=== PATIENT | female | born 2000 | race Caucasian/White ===

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

== ENCOUNTER → 2018-01-05 | Outpatient (REF) | payer OTHER, MEDICAID ==
[2018-01-05 21:35] LABS: CHLAMYDIA DNA AMPLIFICATION POSITIVE (NEGATIVE); GC DNA AMPLIFICATION NEGATIVE (NEGATIVE)
== END ==
LOC: M LAB REF 16:59
DX: Z34.81 Encounter for supervision of other normal pregnancy, first trimester (principal); Z3A.00 Weeks of gestation of pregnancy not specified

== ENCOUNTER → 2018-01-27 | Outpatient (CLI) | payer OTHER | LOC: M RAD 11:39 | DX: Z34.82 Encounter for supervision of other normal pregnancy, second trimester (principal) | CPT/HCPCS: 76811 ==

== ENCOUNTER → 2018-02-03 | Outpatient (REF) | payer MEDICAID, OTHER ==
[2018-02-03 21:25] LABS: CHLAMYDIA DNA AMPLIFICATION NEGATIVE (NEGATIVE); GC DNA AMPLIFICATION NEGATIVE (NEGATIVE)
== END ==
LOC: M LAB REF 16:47
DX: Z34.82 Encounter for supervision of other normal pregnancy, second trimester (principal)

== ENCOUNTER → 2018-02-12 | Outpatient (CLI) | payer MEDICAID, OTHER, SELFPAY | LOC: M RAD 12:20 | DX: Z34.82 Encounter for supervision of other normal pregnancy, second trimester (principal) | CPT/HCPCS: 76816 ==

== ENCOUNTER → 2018-03-09 | Outpatient (CLI) | payer MEDICAID | LOC: M RAD 15:29 | DX: Z34.82 Encounter for supervision of other normal pregnancy, second trimester (principal); Z3A.25 25 weeks gestation of pregnancy | CPT/HCPCS: 76816 ==

== ENCOUNTER → 2018-05-01 | Outpatient (CLI) | payer OTHER ==
[2018-05-01 14:03] LABS: BASO % 0.4 % (0.0-1.0); EOS # 0.1 10^3/uL (0.0-0.50); EOS % 1.3 % (0.0-3.0); HEMATOCRIT 35.4 % (36.0-47.0); HEMOGLOBIN 11.9 g/dl (12.0-15.5); IMMATURE GRANULOCYTE % 0.4 % (0-3.0); LYMPH # 1.3 10^3/uL (1.5-6.5); LYMPH % 12.5 % (24.0-44.0); MEAN CORPUSCULAR HEMOGLOBIN 27.9 pg (27.0-33.0); MEAN CORPUSCULAR HGB CONC 33.6 g/dl (32.0-36.5); MEAN CORPUSCULAR VOLUME 83.1 fl (80.0-96.0); MONO # 0.5 10^3/uL (0.0-0.8); MONO % 4.4 % (0.0-5.0); NEUTROPHILS # 8.7 10^3/uL (1.8-7.7); PLATELET COUNT, AUTOMATED 251 10^3/uL (150-450); RED BLOOD COUNT 4.26 10^6/uL (4.00-5.40); RED CELL DISTRIBUTION WIDTH 12.6 % (11.5-14.5); WHITE BLOOD COUNT 10.7 10^3/uL (4.0-10.0)
[2018-05-01 14:27] LABS: GLUCOSE CHALLENGE TEST 1 HOUR 106 MG/DL (LESS THAN 140)
== END ==
LOC: M LAB 11:37
DX: Z34.82 Encounter for supervision of other normal pregnancy, second trimester (principal); Z36.89 Encounter for other specified antenatal screening
CPT/HCPCS: 82950

== ENCOUNTER 2018-05-19 00:58 | Outpatient (CLI) | payer OTHER ==
[2018-05-19 01:52] LABS: HEMATOCRIT 33.6 % (36.0-47.0); HEMOGLOBIN 11.1 g/dl (12.0-15.5); MEAN CORPUSCULAR HEMOGLOBIN 27.7 pg (27.0-33.0); MEAN CORPUSCULAR VOLUME 83.8 fl (80.0-96.0); PLATELET COUNT, AUTOMATED 244 10^3/uL (150-450); RED BLOOD COUNT 4.01 10^6/uL (4.00-5.40); RED CELL DISTRIBUTION WIDTH 12.5 % (11.5-14.5); WHITE BLOOD COUNT 14.2 10^3/uL (4.0-10.0)
[2018-05-19 01:59] LABS: APPEARANCE, URINE HAZY (CLEAR); BACTERIA, URINE AUTO 3+ (NEGATIVE); BILIRUBIN, URINE AUTO NEGATIVE (NEGATIVE); BLOOD, URINE BLOOD NEGATIVE (NEGATIVE); COLOR, URINE YELLOW (YELLOW); GLUCOSE, URINE (UA) AUTO NEGATIVE (NEGATIVE); KETONE, URINE AUTO TRACE mg/dL (NEGATIVE); LEUKOCYTE ESTERASE, URINE AUTO 3+ (NEGATIVE); NITRITE, URINE AUTO NEGATIVE (NEGATIVE); PROTEIN, URINE AUTO NEGATIVE (NEGATIVE); RBC, URINE AUTO 2 /HPF (0-3); SQUAMOUS EPITHELIAL CELL UR AU 9 /HPF (0-6); UROBILINOGEN, URINE AUTO 0.2 mg/dL (0.0-2.0); WBC, URINE AUTO 19 /HPF (0-3)
[2018-05-19 02:23] LABS: ALBUMIN 2.4 GM/DL (3.2-5.2); ALBUMIN/GLOBULIN RATIO 0.71 (1.00-1.93); ALKALINE PHOSPHATASE 149 U/L (45-117); ALT/SGPT 13 U/L (12-78); AMYLASE 43 U/L (25-115); AST/SGOT 12 U/L (7-37); BILIRUBIN,DIRECT 0.1 MG/DL (0.0-0.2); BILIRUBIN,TOTAL 0.4 MG/DL (0.2-1.0); LIPASE 83 U/L (73-393); TOTAL PROTEIN 5.8 GM/DL (6.4-8.2)
[2018-05-19] MEDS ORDERED: NITROFURANTOIN (MACROBID) 100 MG CAP PO (03:15)
== END 2018-05-19 03:40 | disposition home or self-care (01) ==
LOC: M LDO 00:58
DX: O26.893 Other specified pregnancy related conditions, third trimester (principal); R10.13 Epigastric pain; O21.9 Vomiting of pregnancy, unspecified; Z3A.35 35 weeks gestation of pregnancy
CPT/HCPCS: 76705

== ENCOUNTER 2018-06-10 00:51 | Outpatient (CLI) | payer OTHER ==
[2018-06-10] MEDS: LACTATED RINGER'S 1000 ML IV (01:56)
== END 2018-06-10 03:15 | disposition home or self-care (01) ==
LOC: M LDO 00:51
DX: O26.893 Other specified pregnancy related conditions, third trimester (principal); R10.30 Lower abdominal pain, unspecified; Z3A.38 38 weeks gestation of pregnancy
CPT/HCPCS: 59025

== ENCOUNTER 2018-06-23 12:59 | Inpatient (IN) | payer OTHER ==
[2018-06-23 20:00] LABS: HEMATOCRIT 36.4 % (36.0-47.0); HEMOGLOBIN 12.2 g/dl (12.0-15.5); MEAN CORPUSCULAR HGB CONC 33.5 g/dl (32.0-36.5); MEAN CORPUSCULAR VOLUME 80.5 fl (80.0-96.0); PLATELET COUNT, AUTOMATED 297 10^3/uL (150-450); RED BLOOD COUNT 4.52 10^6/uL (4.00-5.40); WHITE BLOOD COUNT 17.5 10^3/uL (4.0-10.0)
[2018-06-23] MEDS: LR 1,000 ML IV (20:00)
[2018-06-23] MEDS: LACTATED RINGER'S 1000 ML IV (20:00)
[2018-06-23] MEDS ORDERED: FENTANYL 2MCG/ML ROPIVACAINE 0.2% IN 0.9% NACL 200ML IVBAG As Ordered (20:27)
[2018-06-23] MEDS: FENTANYL/ROPIVACAINE/NACL BAG 200 ML EPIDURAL (21:40)
[2018-06-23] MEDS ORDERED: ePHEDrine SULFATE 25 MG/5 ML(5MG/ML) SYRINGE As Ordered (21:56)
[2018-06-23] MEDS: OXYTOCIN DRIP 30 UNITS in APPROPRIATE DILUENT 1 EA IV (23:25)
[2018-06-24] MEDS ORDERED: ePHEDrine SULFATE 25 MG/5 ML(5MG/ML) SYRINGE IV (00:15)
[2018-06-24] MEDS ORDERED: EPIDURAL/PCA KEYS XX (00:15)
[2018-06-24] MEDS ORDERED: diphenhydrAMINE INJ 50MG/ML VIAL (J1200) IV (00:15)
[2018-06-24] MEDS ORDERED: LACTATED RINGER'S 1000 ML IV (00:15)
[2018-06-24] MEDS ORDERED: EPIDURAL COMMENT XX (00:15)
[2018-06-24] MEDS ORDERED: NALOXONE INJ 0.4 MG/1 ML VIAL (J2310) IV (00:15)
[2018-06-24] MEDS ORDERED: REFRIGERATOR IV KEYS XX (00:15)
[2018-06-24] MEDS: ONDANSETRON 4MG/2ML VIAL (J2405) IV (05:33)
[2018-06-24] MEDS: LR 1,000 ML IV ×2 (07:29→10:37)
[2018-06-24] MEDS: PRENATAL VITAMINS CHEWABLE TABLET PO (09:00)
[2018-06-24] MEDS: OXYTOCIN DRIP 30 UNITS in APPROPRIATE DILUENT 1 EA IV (10:37)
[2018-06-24 10:40] LABS: CORD GAS ABE A -6.8; CORD GAS HCO3 A 22.1 MEQ/L; CORD GAS PCO2 A 57.2 mmHg; CORD GAS PH A 7.205 UNITS; CORD GAS PO2 A 28.3 mmHg; CORD GAS SBC A 18.1 MEQ/L; CORD GAS TCO2 A 23.9 MEQ/L
[2018-06-24 10:44] LABS: CORD GAS ABE V -4.6; CORD GAS O2 SAT V 75.9 %; CORD GAS PCO2 V 45.8 mmHg; CORD GAS PH V 7.299 UNITS; CORD GAS PO2 V 33.8 mmHg; CORD GAS SBC V 20.2 MEQ/L; CORD GAS TCO2 V 23.4 MEQ/L
[2018-06-24] MEDS ORDERED: MEASLES,MUMPS,RUBELLA VACCINE INJ (MMR-II) (90707) SC (10:45)
[2018-06-24] MEDS ORDERED: RHOGAM 300 MCG (1500 IU) INJ (J2790) IM (10:45)
[2018-06-24] MEDS ORDERED: ONDANSETRON 4MG/2ML VIAL (J2405) IV (10:45)
[2018-06-24] MEDS ORDERED: IBUPROFEN 800 MG TAB PO (10:45)
[2018-06-24] MEDS ORDERED: PROMETHAZINE 25 MG TAB PO (10:45)
[2018-06-24] MEDS ORDERED: AMPICILLIN SOD 2 GM in D5W 50 ML IV (10:45)
[2018-06-24] MEDS ORDERED: DIBUCAINE 1% OINTMENT 30GM TOP (10:45)
[2018-06-24] MEDS ORDERED: DOCUSATE SODIUM 100 MG CAP PO (10:45)
[2018-06-24] MEDS: AMPICILLIN SOD 1 GM in D5W 50 ML IV ×2 (11:39→12:09)
[2018-06-24] MEDS: ACETAMINOPHEN 500 MG TAB PO (11:46)
[2018-06-25] MEDS: PRENATAL VITAMINS CHEWABLE TABLET PO (08:00)
== END 2018-06-25 14:25 | disposition home or self-care (01) | DRG 560 ==
LOC: M LDO 12:59 → M OBS 06-24 12:56 → M LDI 19:49
PROVIDERS: Advanced Practice Midwife
PROC: 10E0XZZ Delivery of Products of Conception, External Approach (ICD-10-PCS; principal; 2018-06-24)
PROC: 10907ZC Drainage of Amniotic Fluid, Therapeutic from Products of Conception, Via Natural or Artificial Opening (ICD-10-PCS; 2018-06-24)
DX: O48.0 Post-term pregnancy (principal); Z3A.40 40 weeks gestation of pregnancy; Z37.0 Single live birth

== ENCOUNTER 2019-04-12 15:24 | Emergency (ER) | payer OTHER ==
[~2019-04-12] VITALS: Ht 157.5 cm; Wt 128.4 kg
[~2019-04-12 15:24] MED LIST changes: +ADDE20CA3 PO; +COLA100C5 PO; +IBUP-1114 PO; +MAPA500T2 PO; +NAPR-837 PO; +PRENTAB55 PO; +PRENTAB9 PO
[2019-04-12] MEDS ORDERED: OMEP-221 (16:01)
[2019-04-12] MEDS ORDERED: NS 1,000 ML IV SCH (16:20)
[2019-04-12] MEDS ORDERED: MORPHINE 2 MG/ML 1ML SYRINGE (J2270) IV ONE (16:30)
[2019-04-12] MEDS ORDERED: ONDANSETRON 4MG/2ML VIAL (J2405) IV ONE (16:30)
[2019-04-12] MEDS ORDERED: KETOROLAC 30 MG/ML VIAL (J1885) IV ONE (16:30)
[2019-04-12 16:42] LABS: BASO # 0.1 10^3/uL (0.0-0.2); BASO % 0.4 % (0.0-1.0); EOS % 0.1 % (0.0-3.0); HEMATOCRIT 43.8 % (36.0-47.0); HEMOGLOBIN 14.6 g/dl (12.0-15.5); LYMPH # 0.7 10^3/uL (1.5-5.0); LYMPH % 5.3 % (24.0-44.0); MEAN CORPUSCULAR HGB CONC 33.3 g/dl (32.0-36.5); MEAN CORPUSCULAR VOLUME 78.1 fl (80.0-96.0); MONO # 0.7 10^3/uL (0.0-0.8); MONO % 4.7 % (0.0-5.0); NEUTROPHILS # 12.5 10^3/uL (1.5-8.5); NEUTROPHILS % 89.1 % (36.0-66.0); PLATELET COUNT, AUTOMATED 334 10^3/uL (150-450); RED BLOOD COUNT 5.61 10^6/uL (4.00-5.40)
[2019-04-12 16:56] LABS: INR 1.13; PROTHROMBIN TIME 14.2 SECONDS (11.8-14.0)
[2019-04-12 17:00] LABS: BLOOD UREA NITROGEN 7 MG/DL (7-18); CALCIUM LEVEL 9.1 MG/DL (8.5-10.1); CARBON DIOXIDE LEVEL 21 MEQ/L (21-32); CHLORIDE LEVEL 104 MEQ/L (98-107); CREATININE FOR GFR 0.88 MG/DL (0.55-1.30); GLUCOSE, FASTING 87 MG/DL (70-100); LIPASE 395 U/L (73-393); POTASSIUM SERUM 3.5 MEQ/L (3.5-5.1); SODIUM LEVEL 139 MEQ/L (136-145)
[2019-04-12 17:06] LABS: HCG, SERUM QUALITATIVE NEGATIVE (NEGATIVE)
--- NOTE | 2019-04-12 18:05 | REPVR ---
EXAM: CT Abdomen and Pelvis Without Contrast EXAM DATE/TIME: 04/12/2019 4:57 PM CLINICAL HISTORY: 18 years old, female; Abdominal pain; Colic; Additional info: Left renal colic TECHNIQUE: Imaging protocol: Computed tomography of the abdomen and pelvis without contrast. Radiation optimization: All CT scans at this facility use at least one of these dose optimization techniques: automated exposure control; mA and/or kV adjustment per patient size (includes targeted exams where dose is matched to clinical indication); or iterative reconstruction. COMPARISON: US OBS FOLL UP OR REPEAT EACH GES 03/09/2018 3:38 PM FINDINGS: Liver: The liver is normal. Gallbladder and bile ducts: The gallbladder is normal. No calcified stones. Pancreas: The pancreas is normal. Spleen: The spleen is normal. Adrenals: The adrenal glands are normal. Kidneys and ureters: No evidence of renal calculus. There is mild left hydronephrosis and hydroureter. No ureteral calculus is identified. No hydronephrosis or hydroureter on the right area Stomach and bowel: Postoperative changes of the stomach consistent with gastric bypass. Appendix: The appendix is normal. Intraperitoneal space: There is no free fluid or fluid collection. There is no free air. Vasculature: Unremarkable. No abdominal aortic aneurysm. Lymph nodes: Unremarkable. No enlarged lymph nodes. Bladder: The bladder is normal with no evidence of calculi. Reproductive: There is a 2.5 cm right ovarian cyst. Bones/joints: There is unilateral spondylolysis on the left at L5. There is sclerosis indicating chronic spondylolysis. No acute fracture. Soft tissues: Unremarkable. IMPRESSION: 1. Mild left hydronephrosis and hydroureter with no evidence of obstructing calculus or lesion. This may indicate a recently passed calculus , which needs clinical correlation. 2. 2.5 cm right ovarian cyst. 3. The lateral left L5 spondylolysis. Electronically signed by: Dar Rawls On 04/12/2019 18:05:18 PM
[2019-04-12 19:45] VITALS: BP 118/71
[2019-04-12] MEDS ORDERED: CIPR-249 PO (19:52)
[2019-04-12] MEDS ORDERED: NORC1TAB7 PO (19:52)
[2019-04-12] MEDS ORDERED: CIPROFLOXACIN 500 MG TAB PO ONE (20:00)
== END 2019-04-12 20:06 | disposition home or self-care (01) ==
LOC: M ED 15:24
DX: N39.0 Urinary tract infection, site not specified (principal); K85.90 Acute pancreatitis without necrosis or infection, unspecified; N13.39 Other hydronephrosis; N83.201 Unspecified ovarian cyst, right side; M47.816 Spondylosis without myelopathy or radiculopathy, lumbar region; F90.9 Attention-deficit hyperactivity disorder, unspecified type; Z98.84 Bariatric surgery status; Z88.8 Allergy status to other drugs, medicaments and biological substances; Z79.899 Other long term (current) drug therapy
CPT/HCPCS: 74176; 80048; 81001; 83690; 84702; 84703; 85025; 85610; 87086; 96361; 96374; 96375; 99284; J1885; J2270; J2405

== ENCOUNTER 2019-04-15 08:04 | Emergency (ER) | payer OTHER ==
[~2019-04-15] VITALS: Ht 157.5 cm; Wt 128.4 kg
[~2019-04-15 08:04] MED LIST changes: +CIPR-249 PO; +NORC1TAB7 PO; +OMEP-221
[2019-04-15] MEDS ORDERED: B-122500 PO (08:12)
[2019-04-15] MEDS ORDERED: ACETAMINOPHEN 500 MG TAB PO ONE (08:30)
[2019-04-15] MEDS ORDERED: METOCLOPRAMIDE INJ 10MG/2ML VIAL (J2765) IV ONE (08:30)
[2019-04-15] MEDS ORDERED: METOCLOPRAMIDE INJ 10MG/2ML VIAL (J2765) IM ONE (09:30)
--- NOTE | 2019-04-15 09:39 | REP ---
Urinary tract sonography: History: Left-sided hydronephrosis. Comparison CT study April 12, 2019. Findings: Renal cortical echogenicity pattern is normal bilaterally. There is no evidence of hydronephrosis on either side. Emptying ureteral jets are confirmed on color Doppler interrogation of the urinary bladder lumen bilaterally. No cyst or mass is seen. Right kidney measures 11.1 x 5.2 x 5.4 cm. Left renal dimensions are 13.1 x 5.9 x 5.6 cm. Impression: Previously noted left-sided hydronephrosis is resolved. Etiologies for the CT findings include recent stone passage versus reflux. Electronically Signed by Pal Gambino MD 04/15/2019 12:58 P
[2019-04-15 09:40] LABS: BASO # 0.1 10^3/uL (0.0-0.2); BASO % 0.4 % (0.0-1.0); EOS % 0.2 % (0.0-3.0); HEMATOCRIT 44.3 % (36.0-47.0); HEMOGLOBIN 14.3 g/dl (12.0-15.5); LYMPH # 0.7 10^3/uL (1.5-5.0); LYMPH % 5.8 % (24.0-44.0); MEAN CORPUSCULAR HGB CONC 32.3 g/dl (32.0-36.5); MEAN CORPUSCULAR VOLUME 77.6 fl (80.0-96.0); MONO # 0.8 10^3/uL (0.0-0.8); MONO % 6.9 % (0.0-5.0); NEUTROPHILS # 10.4 10^3/uL (1.5-8.5); NEUTROPHILS % 86.4 % (36.0-66.0); PLATELET COUNT, AUTOMATED 335 10^3/uL (150-450); RED BLOOD COUNT 5.71 10^6/uL (4.00-5.40)
[2019-04-15] MEDS ORDERED: ZOFR4TAB16 PO (10:09)
[2019-04-15 10:24] VITALS: BP 122/61
== END 2019-04-15 10:28 | disposition home or self-care (01) ==
LOC: M ED 08:04
DX: R11.2 Nausea with vomiting, unspecified (principal); Z98.84 Bariatric surgery status; Z87.442 Personal history of urinary calculi; Z88.1 Allergy status to other antibiotic agents; Z79.899 Other long term (current) drug therapy; Z79.2 Long term (current) use of antibiotics
CPT/HCPCS: 36415; 76775; 83690; 85025; 96372; 99283; J2765

== ENCOUNTER 2019-08-08 23:57 | Emergency (ER) | payer OTHER ==
[~2019-08-08] VITALS: Ht 157.5 cm; Wt 107.8 kg
[~2019-08-08 23:57] MED LIST changes: +B-122500 PO; +ZOFR4TAB16 PO
[2019-08-09 01:38] LABS: BASO % 0.3 % (0.0-1.0); EOS % 0.3 % (0.0-3.0); HEMATOCRIT 41.7 % (36.0-47.0); HEMOGLOBIN 13.8 g/dl (12.0-15.5); LYMPH # 1.1 10^3/uL (1.5-5.0); LYMPH % 8.8 % (24.0-44.0); MEAN CORPUSCULAR HEMOGLOBIN 27.7 pg (27.0-33.0); MEAN CORPUSCULAR HGB CONC 33.1 g/dl (32.0-36.5); MEAN CORPUSCULAR VOLUME 83.7 fl (80.0-96.0); MONO # 0.5 10^3/uL (0.0-0.8); MONO % 3.7 % (0.0-5.0); NEUTROPHILS # 11.2 10^3/uL (1.5-8.5); NEUTROPHILS % 86.6 % (36.0-66.0); PLATELET COUNT, AUTOMATED 245 10^3/uL (150-450); RED BLOOD COUNT 4.98 10^6/uL (4.00-5.40); WHITE BLOOD COUNT 12.9 10^3/uL (4.0-10.0)
[2019-08-09 01:50] LABS: HCG, SERUM QUALITATIVE POSITIVE (NEGATIVE)
[2019-08-09 02:01] LABS: APPEARANCE, URINE HAZY (CLEAR); BACTERIA, URINE AUTO 1+ (NEGATIVE); BILIRUBIN, URINE AUTO NEGATIVE (NEGATIVE); BLOOD, URINE BLOOD NEGATIVE (NEGATIVE); COLOR, URINE AMBER (YELLOW); GLUCOSE, URINE (UA) AUTO NEGATIVE (NEGATIVE); KETONE, URINE AUTO 2+ mg/dL (NEGATIVE); LEUKOCYTE ESTERASE, URINE AUTO 3+ (NEGATIVE); MUCUS, URINE LARGE (NEGATIVE); NITRITE, URINE AUTO NEGATIVE (NEGATIVE); PROTEIN, URINE AUTO 1+ mg/dL (NEGATIVE); RBC, URINE AUTO 6 /HPF (0-3); SPECIFIC GRAVITY URINE AUTO 1.026 (1.002-1.035); SQUAMOUS EPITHELIAL CELL UR AU 3 /HPF (0-6); WBC, URINE AUTO 35 /HPF (0-3)
[2019-08-09 02:24] LABS: ALBUMIN 2.9 GM/DL (3.2-5.2); ALT/SGPT 12 U/L (12-78); BILIRUBIN,DIRECT 0.2 MG/DL (0.0-0.2); BILIRUBIN,TOTAL 0.5 MG/DL (0.2-1.0); BLOOD UREA NITROGEN 4 MG/DL (7-18); CALCIUM LEVEL 8.6 MG/DL (8.5-10.1); CARBON DIOXIDE LEVEL 22 MEQ/L (21-32); CHLORIDE LEVEL 109 MEQ/L (98-107); CREATININE FOR GFR 0.49 MG/DL (0.55-1.30); GLUCOSE, FASTING 86 MG/DL (70-100); LIPASE 59 U/L (73-393); POTASSIUM SERUM 3.9 MEQ/L (3.5-5.1); SODIUM LEVEL 140 MEQ/L (136-145); TOTAL PROTEIN 6.6 GM/DL (6.4-8.2)
[2019-08-09 02:33] LABS: HCG, SERUM QUANTITATIVE 33884 MIU/ML
--- NOTE | 2019-08-09 04:50 | REPVR ---
PROCEDURE INFORMATION: Exam: US After First Trimester, Transabdominal Exam date and time: 08/09/2019 3:33 AM Age: 18 years old Clinical indication: complicated by abdominal or pelvic pain; Generalized abdominal pain; Second trimester; Gestational age or lmp: 15w5d; TECHNIQUE: Imaging protocol: Real-time transabdominal obstetrical ultrasound of the maternal pelvis and a second or third trimester with image documentation. COMPARISON: US OBS FOLL UP OR REPEAT EACH GES 03/09/2018 3:38 PM FINDINGS: GESTATION: Gestation: Single living intrauterine . Heart rate: heart rate 158 beats per minute. Presentation: Cephalic position. Placenta: Anterior placenta. No abruption. Amniotic fluid: Amniotic fluid is normal for gestational age. Head, face, and neck: Unremarkable for early gestational age. Heart: Heart is obscured by position. Abdomen: Abdominal anatomy is grossly unremarkable. Umbilical cord and insertion: Unremarkable. Spine: Spinal anatomy is obscured by position. Extremities: Extremities are grossly unremarkable. BIOMETRY: Estimated gestational age: Ultrasound gestational age of 15 weeks 5 days. Estimated due date: VINEET 01/26/2020. Estimated weight: Estimated weight 129 g +/- 19 g (38%) Biparietal diameter: BPD 3.3 cm, 16 weeks 1 day. Head circumference: Head circumference 12.1 cm, 16 weeks 0 days. Abdominal circumference: Abdominal circumference 9.8 cm, 15 weeks 6 days. Femur length: Femur length 1.8 cm, 15 weeks 1 day. MATERNAL: Uterus: Unremarkable. Cervix: Cervix closed. Cervical length 3.2 cm. IMPRESSION: 1. Single viable IUP in cephalic position with ultrasound gestational age of 15 weeks 5 days. This is less than reported clinical dates of 19 weeks 2 days. 2. VINEET 01/26/2020 based on ultrasound composite age. 3. Limited anatomic survey, however, no abnormalities are identified. Recommend repeat examination at 20-21 weeks for detailed anatomic assessment. Electronically signed by: Yonis De La O On 08/09/2019 04:49:47 AM
[2019-08-09] MEDS ORDERED: MACR100C43 PO (04:55)
[2019-08-09] MEDS ORDERED: NITROFURANTOIN (MACROBID) 100 MG CAP PO ONE (05:00)
[2019-08-09 05:33] VITALS: BP 120/60
== END 2019-08-09 05:34 | disposition home or self-care (01) ==
LOC: M ED 23:57
DX: O23.41 Unspecified infection of urinary tract in pregnancy, first trimester (principal); Z87.891 Personal history of nicotine dependence; O99.842 Bariatric surgery status complicating pregnancy, second trimester; Z3A.15 15 weeks gestation of pregnancy; Z88.1 Allergy status to other antibiotic agents; Z79.899 Other long term (current) drug therapy

== ENCOUNTER → 2019-10-13 | Outpatient (REF) | payer OTHER ==
[~2019-10-13] MED LIST changes: +MACR100C43 PO
[2019-10-13 18:02] LABS: HEMATOCRIT 38.8 % (36.0-47.0); HEMOGLOBIN 12.8 g/dl (12.0-15.5); MEAN CORPUSCULAR HEMOGLOBIN 29.2 pg (27.0-33.0); MEAN CORPUSCULAR VOLUME 88.6 fl (80.0-96.0); PLATELET COUNT, AUTOMATED 224 10^3/uL (150-450); RED BLOOD COUNT 4.38 10^6/uL (4.00-5.40); WHITE BLOOD COUNT 10.9 10^3/uL (4.0-10.0)
[2019-10-13 18:21] LABS: HEMOGLOBIN A1c 4.5 %
[2019-10-13 20:09] LABS: CHLAMYDIA DNA AMPLIFICATION NEGATIVE (NEGATIVE); GC DNA AMPLIFICATION NEGATIVE (NEGATIVE)
[2019-10-15 09:10] LABS: HEPATITIS B SURFACE ANTIGEN NEGATIVE (NEGATIVE); HEPATITIS C VIRUS ABY INDEX < 0.0 INDEX (<0.8); HIV 1&2 SCREEN CENTAUR NEGATIVE (NEGATIVE); RUBELLA IgG QUALITATIVE IMMUNE (IMMUNE)
== END ==
LOC: M PLALAB 13:44
PROVIDERS: ATTEND Advanced Practice Midwife
DX: O99.212 Obesity complicating pregnancy, second trimester (principal)

== ENCOUNTER → 2019-12-16 | Outpatient (REF) | payer OTHER | LOC: M SFHCWAGY 17:11 | PROVIDERS: ATTEND Advanced Practice Midwife | DX: O99.213 Obesity complicating pregnancy, third trimester (principal) ==

== ENCOUNTER → 2020-01-05 | Outpatient (REF) | payer OTHER | LOC: M PLALAB 14:43 | PROVIDERS: ATTEND Advanced Practice Midwife | DX: Z34.83 Encounter for supervision of other normal pregnancy, third trimester (principal) ==

== ENCOUNTER 2020-01-27 15:06 | Inpatient (IN) | payer OTHER ==
[2020-01-27] VITALS (16 sets, daily range): BP systolic 114–139; BP diastolic 49–92
[~2020-01-27] VITALS: Ht 157.5 cm; Wt 100.3 kg
[2020-01-27] MEDS: miSOPROStol 50 MCG 1/2 TAB (S0191) SL SCH ×2 (16:00→20:18)
[2020-01-27 16:17] LABS: HEMATOCRIT 35.4 % (36.0-47.0); HEMOGLOBIN 11.5 g/dl (12.0-15.5); MEAN CORPUSCULAR HEMOGLOBIN 26.3 pg (27.0-33.0); MEAN CORPUSCULAR HGB CONC 32.5 g/dl (32.0-36.5); PLATELET COUNT, AUTOMATED 237 10^3/uL (150-450); RED BLOOD COUNT 4.37 10^6/uL (4.00-5.40); WHITE BLOOD COUNT 9.5 10^3/uL (4.0-10.0)
--- NOTE | 2020-01-27 16:17 | HPE ---
DATE OF ADMISSION: 01/27/2020 HISTORY: 19-year-old, (G) 2, para (P) 1 female, at 40-1/7 weeks gestation by 15 week ultrasound and estimated date of confinement (EDC) of 01/26/2020, presents for labor induction. She denies contractions or vaginal bleeding. Her course has been unremarkable. OBSTETRICAL HISTORY: 1. June 2018, vaginal delivery, 6 pound 8 ounce female , no complications. MEDICAL HISTORY: 1. Obesity. SURGICAL HISTORY: 1. Gastric bypass in March 2019. 2. Oral surgery September 2017. ALLERGIES: 1. ROCEPHIN. SOCIAL HISTORY: The patient lives in [place]. Father of the baby is involved. She denies cigarettes, alcohol, or drug use. FAMILY HISTORY: Noncontributory. PHYSICAL EXAMINATION: Blood pressure 134/74, pulse 84. Afebrile. No apparent distress. HEAD/NECK EXAM: Normal. LUNGS: Clear. HEART: Regular rate and rhythm. ABDOMEN: Nontender, gravid. heart tones category 1. STERILE VAGINAL EXAM: 2 cm, 50%, -2, posterior, soft vertex. EXTREMITIES: Nontender. LABS: Blood type A. GBS negative. ASSESSMENT: 19-year-old, 2, para 1 female, at 40-1/7 weeks gestation presents for labor induction. PLAN: The patient is admitted on 01/27/2020. Risks of induction were discussed.
[2020-01-27] MEDS ORDERED: OXYTOCIN 30 UNITS IN 0.9% NaCl 500ML IV BAG (J2590) As Ordered ONE (21:23)
[2020-01-27] MEDS ORDERED: FENTANYL 2MCG/ML ROPIVACAINE 0.2% IN 0.9% NACL 100ML IVBAG As Ordered ONE (21:24)
[2020-01-27] MEDS ORDERED: LR 1,000 ML IV SCH (21:30)
[2020-01-27] MEDS ORDERED: LR 1,000 ML IV ONE (21:30)
[2020-01-27] MEDS ORDERED: EPIDURAL/PCA KEYS XX PRN (22:45)
[2020-01-27] MEDS ORDERED: ePHEDrine SULFATE 25 MG/5 ML(5MG/ML) SYRINGE IV PRN (22:45)
[2020-01-27] MEDS ORDERED: diphenhydrAMINE 50MG/ML VIAL (J1200) IV PRN (22:45)
[2020-01-27] MEDS ORDERED: LACTATED RINGER'S 1000 ML IV PRN (22:45)
[2020-01-27] MEDS ORDERED: ONDANSETRON 4MG/2ML VIAL IV PRN (22:45)
[2020-01-27] MEDS ORDERED: NALOXONE INJ 0.4MG/1ML VIAL (J2310 PER 1MG) IV PRN (22:45)
[2020-01-27] MEDS ORDERED: REFRIGERATOR IV KEYS XX PRN (22:45)
[2020-01-27] MEDS ORDERED: FENTANYL/ROPIVACAINE/NACL BAG 100 ML EPIDURAL SCH (22:45)
[2020-01-27] MEDS ORDERED: EPIDURAL COMMENT XX SCH (22:45)
[2020-01-27] MEDS ORDERED: RHOGAM 300 MCG (1500 IU) INJ (J2790) IM SCH (23:45)
[2020-01-27] MEDS ORDERED: PROMETHAZINE 25 MG TAB PO PRN (23:45)
[2020-01-27] MEDS ORDERED: DOCUSATE SODIUM 100 MG CAP PO PRN (23:45)
[2020-01-27] MEDS ORDERED: OXYTOCIN DRIP 30 UNITS in IV 1 EA IV ONE (23:45)
[2020-01-27] MEDS ORDERED: METHYLERGONOVINE MALEATE 0.2 MG TAB PO PRN (23:45)
[2020-01-27] MEDS ORDERED: IBUPROFEN 600MG TAB PO PRN (23:45)
[2020-01-27] MEDS ORDERED: IBUPROFEN 800 MG TAB PO PRN (23:45)
[2020-01-27] MEDS ORDERED: DIBUCAINE 1% OINTMENT 30GM TOP PRN (23:45)
[2020-01-27] MEDS ORDERED: ACETAMINOPHEN TAB 650MG DOSE (2X325MG) PO PRN (23:45)
[2020-01-27] MEDS ORDERED: ACETAMINOPHEN 500 MG TAB PO PRN (23:45)
[2020-01-27] MEDS ORDERED: MEASLES,MUMPS,RUBELLA VACCINE INJ (MMR-II) (90707) SC SCH (23:45)
--- NOTE | 2020-01-27 23:56 | DNPDOC ---
[facility] Delivery Note Delivery Note DATE OF DELIVERY: 01/27/2020 at 2333 PREDELIVERY DIAGNOSIS: 40+1 weeks' gestation, induction and labor. POST DELIVERY DIAGNOSIS: Delivered. PROCEDURE: . 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 ESTIMATED BLOOD LOSS: 300mL. FINDINGS: See note by Dr. Childs DELIVERY SUMMARY: Called to room for imminent delivery of Salima. Dr. Childs was on his way to the floor when the pt screamed out. I entered the room at 2331 and head was . Between contractions, the hummel catheter was removed, then pt uncontrollably pushed to deliver a viable male infant over a protected perineum at 2333. head delivered MADHURI and restituted to ROT. Left anterior shoulder delivered with ease, followed by right posterior shoulder, then remainder of delivered; loose cord removed from right arm, then infant placed on maternal abdomen where he was dried and stimulated; strong lusty cry. Dr. Childs entered the room at this time and assumed the remainder of the delivery. Please see his note. FLACO PANIAGUA CNM Jan 27, 2020 23:56
[2020-01-28] VITALS (8 sets, daily range): BP systolic 106–132; BP diastolic 56–73
[2020-01-28] MEDS: PRENATAL VITAMINS CHEWABLE TABLET PO SCH (08:26)
[2020-01-29 06:00] VITALS: BP 113/58
[2020-01-29] MEDS: PRENATAL VITAMINS CHEWABLE TABLET PO SCH (09:21)
--- NOTE | 2020-01-30 15:12 | DN ---
DATE: 01/27/2020 PREDELIVERY DIAGNOSIS: 40 weeks, labor induction. POSTDELIVERY DIAGNOSIS: Delivered. PROCEDURE: Spontaneous vaginal delivery. AMMUNITION COMPONENTS INSPECTOR: Dr. Zaheer Childs. ANESTHESIA: Epidural . ESTIMATED BLOOD LOSS: 300 mL. FINDINGS: 6 pound, 12 ounce male infant. scores 8 and 9. DELIVERY SUMMARY: Had called as the patient was feeling more pressure. When they arrived, the baby was in the process of delivering with Carmen Ramirez CNM, attending the deliver. Baby appeared to deliver with ease. There was no shoulder dystocia present. The infant cried immediately. I then interceded. I doubly clamped and cut the cord. Placenta delivered spontaneously and appeared to be intact. Patient received intravenous (IV) Pitocin immediately after delivery of the placenta. There were no vaginal lacerations present. Sponge counts were correct.
== END 2020-01-29 10:10 | disposition home or self-care (01) | DRG 560 ==
LOC: M LDI 15:06 → M OBS 01-28 01:19
PROVIDERS: ADMIT Specialist; ATTEND Registered Nurse Maternal Newborn
PROC: 10E0XZZ Delivery of Products of Conception, External Approach (ICD-10-PCS; principal; 2020-01-27)
PROC: 3E0P7GC Introduction of Other Therapeutic Substance into Female Reproductive, Via Natural or Artificial Opening (ICD-10-PCS; 2020-01-27)
DX: O48.0 Post-term pregnancy (principal); Z3A.40 40 weeks gestation of pregnancy; O99.844 Bariatric surgery status complicating childbirth; O69.82X0 Labor and delivery complicated by other cord entanglement, without compression, not applicable or unspecified; Z37.0 Single live birth

== ENCOUNTER → 2020-12-25 | Outpatient (CLI) | payer OTHER ==
[2020-12-25 13:13] LABS: HEMATOCRIT 35.2 % (36.0-47.0); HEMOGLOBIN 10.4 g/dl (12.0-15.5); MEAN CORPUSCULAR HEMOGLOBIN 22.3 pg (27.0-33.0); MEAN CORPUSCULAR HGB CONC 29.5 g/dl (32.0-36.5); MEAN CORPUSCULAR VOLUME 75.4 fl (80.0-96.0); PLATELET COUNT, AUTOMATED 281 10^3/uL (150-450); RED BLOOD COUNT 4.67 10^6/uL (4.00-5.40); WHITE BLOOD COUNT 7.9 10^3/uL (4.0-10.0)
[2020-12-25 13:35] LABS: IRON (FE) 24 UG/DL (50-170)
[2020-12-25 13:47] LABS: TOTAL 25(OH) VITAMIN D 9.7 NG/ML (30.0-100.0)
[2020-12-25 13:49] LABS: FOLATE 6.9 NG/ML (>5.4); VITAMIN B12 LEVEL 320 PG/ML (247-911)
[2020-12-25 14:21] LABS: HEMOGLOBIN A1c 4.8 %
[2020-12-25 14:27] LABS: HIV 1&2 SCREEN CENTAUR NEGATIVE (NEGATIVE)
== END ==
LOC: M WHC 10:12
PROVIDERS: ATTEND Advanced Practice Midwife
DX: Z34.92 Encounter for supervision of normal pregnancy, unspecified, second trimester (principal)

== ENCOUNTER → 2021-01-22 | Outpatient (REF) | payer OTHER | LOC: M SFHCWAGY 17:18 | PROVIDERS: ATTEND Advanced Practice Midwife | DX: Z34.92 Encounter for supervision of normal pregnancy, unspecified, second trimester (principal) ==

== ENCOUNTER → 2021-02-19 | Outpatient (CLI) | payer OTHER ==
--- NOTE | 2021-02-19 13:28 | REP ---
INDICATION: F/U ANATOMY - SPINE - EDC 06/06/21. COMPARISON: Comparison sonography January 18, 2021.. TECHNIQUE: Transabdominal obstetric sonography FINDINGS: Scanning through the gravid uterus demonstrates a viable single intrauterine gestation in cephalic lie. motion is observed and heart rate is recorded at 132 beats per minute. A 2 anterior placenta is seen, grade 0, without evidence of placenta previa. Closed cervical length is measured at 3.3 cm transabdominally. No extrauterine abnormality is observed. Amniotic fluid is subjectively normal. Four-chamber heart, left ventricular and right ventricular outflow tract views, and spine were visualized today and felt to be normal.. Biometry chart: BPD 6.1 cm, 24 weeks 4 days Head circumference 22.8 cm, 24 weeks 6 days Abdominal circumference 20.0 cm, 24 weeks 4 days Femur length 4.6 cm, 25 weeks 0 days Humeral length 4.1 cm, 24 weeks 5 days HC AC ratio normal 1.14 Cephalic index normal 0.73 Estimated weight 737 g, 1 lb 9 oz, 48th percentile for 24 weeks 5 days IMPRESSION: Viable single intrauterine gestation at 24 weeks 5 days by today's composite sonographic criteria. VINEET by today's sonography June 06, 2021. No complication identified. Expected gestational age estimate from prior sonography 24 weeks 5 days, VINEET prior sonography June 06, 2021. In conjunction with the prior study, anatomic survey is felt to be complete. <Electronically signed by Zeeshan Gambino > 02/19/21 2028
== END ==
LOC: M WHC 10:36
PROVIDERS: ATTEND Advanced Practice Midwife
DX: Z34.92 Encounter for supervision of normal pregnancy, unspecified, second trimester (principal); Z3A.24 24 weeks gestation of pregnancy

== ENCOUNTER → 2021-05-11 | Outpatient (CLI) | payer OTHER ==
[2021-05-11 14:08] LABS: HEMATOCRIT 30.7 % (36.0-47.0); MEAN CORPUSCULAR HEMOGLOBIN 21.8 pg (27.0-33.0); MEAN CORPUSCULAR HGB CONC 29.3 g/dl (32.0-36.5); MEAN CORPUSCULAR VOLUME 74.5 fl (80.0-96.0); PLATELET COUNT, AUTOMATED 282 10^3/uL (150-450); RED BLOOD COUNT 4.12 10^6/uL (4.00-5.40); WHITE BLOOD COUNT 8.7 10^3/uL (4.0-10.0)
[2021-05-11 15:39] LABS: GC DNA AMPLIFICATION NEGATIVE (NEGATIVE)
== END ==
LOC: M PLALAB 11:17
PROVIDERS: ATTEND Obstetrics & Gynecology
DX: Z36.89 Encounter for other specified antenatal screening (principal); Z3A.36 36 weeks gestation of pregnancy

== ENCOUNTER 2021-05-13 12:44 | Outpatient (CLI) | payer OTHER ==
[~2021-05-13] VITALS: Ht 157.5 cm; Wt 90.7 kg
[2021-05-13 12:57] VITALS: BP 117/64
[2021-05-13 14:31] VITALS: BP 108/52
--- NOTE | 2021-05-13 15:08 | IPNPDOC ---
Obstetrical Progress Note Date of Service May 13, 2021 Subjective 20yo G 3 P 2002 at 36+4 weeks EGA. Presents for a labor check. Reports frequent, painful uterine contractions. No loss of fluid or vaginal bleeding. Reports regular, frequent movement. ROS: No AGUILAR, visual changes, RUQ pain, sob, cp, n/v/f/c. complications: COVID+ (03/2021), anemia PMH/SH: gastric bypass OB: term x 2 [employer]: past chlamydial infection (treated) Meds: PNV All: Rocephin O: Normotensive, normal HR, afebrile Abd: soft,nt,nd, no fundal tenderness SVE: 1 cm, 50 %, -3, cephalic, intact EFM: Cat I / Reactive Maurice: contractions are not tracing , not significantly frequent. A/P: 20 yo at 36+4 weeks EGA. No evidence of active labor or ROM. Reassuring maternal and status. -Routine third trimester precautions given. -Follow up in office as scheduled. Lidia Khan DO FACOG. Objective Vital Signs Date Time Temp Pulse Resp B/P (MAP) Pulse Ox O2 Delivery O2 Flow Rate FiO2 05/13/21 12:57 98.4 115 18 117/64 (81) MARIUSZ KHAN DO May 13, 2021 15:08
== END 2021-05-13 15:10 | disposition home or self-care (01) ==
LOC: M LDO 12:44
PROVIDERS: ATTEND Obstetrics & Gynecology
DX: O60.03 Preterm labor without delivery, third trimester (principal); Z3A.36 36 weeks gestation of pregnancy; O99.013 Anemia complicating pregnancy, third trimester; O99.843 Bariatric surgery status complicating pregnancy, third trimester; Z86.16 Personal history of COVID-19

== ENCOUNTER → 2021-05-22 | Outpatient (CLI) | payer OTHER ==
[~2021-05-22] VITALS: Ht 162.6 cm; Wt 90.9 kg
[~2021-05-22] MED LIST changes: +IRON SUCROSE 500 MG in NS 250 ML OVER 4 HRS IV ONE
[2021-05-22 10:33] VITALS: BP 109/58
[2021-05-22 11:00] VITALS: BP 123/74
[2021-05-22 12:00] VITALS: BP 118/58
[2021-05-22 13:00] VITALS: BP 124/66
[2021-05-22 14:00] VITALS: BP 106/72
== END ==
LOC: M INFU 10:13
PROVIDERS: ATTEND Advanced Practice Midwife
DX: D64.9 Anemia, unspecified (principal)
CPT/HCPCS: 96365; 96366; J1756

== ENCOUNTER → 2021-05-24 | Outpatient (CLI) | payer OTHER ==
[~2021-05-24] MED LIST changes: -IRON SUCROSE 500 MG in NS 250 ML OVER 4 HRS IV ONE
--- NOTE | 2021-05-25 03:58 | REP ---
INDICATION: GROWTH COMPARISON: 02/19/2021 TECHNIQUE: Transabdominal obstetrical ultrasound with color Doppler evaluation. FINDINGS: Examination demonstrates a single live intrauterine in cephalic presentation. motion is identified by technologist. Placenta is noted anterior and grade 3 without evidence for placenta previa or abruption. Amniotic fluid volume is normal. Cervix appears closed.. Selected gestational age: 30 weeks 1 day with VINEET 06/06/2021. Gestational age by current measurements 36 weeks 0 days with VINEET 06/21/2021. FHR equals 143 beats per minute. BPD: 9.0 cm at 36 weeks 3 days HC: 32.2 cm at 36 weeks 3 days AC: 31.0 cm at 35 weeks 0 days FL: 7.1 cm at 36 weeks 1 day HL: 6.2 cm at 36 weeks 1 day HC/AC: 1.04 Estimated weight 2712 grams (10thpercentile). LE: 11.2 cm Umbilical artery SD ratio: 2.14 IMPRESSION: Single live advanced gestation in cephalic presentation demonstrating appropriate estimated weight. Biometric measurements fall within the lower normal range for age. No gross abnormalities are identified. <Electronically signed by Yonis Díaz > 05/25/21 0353
== END ==
LOC: M WHC 12:08
PROVIDERS: ATTEND Obstetrics & Gynecology
DX: O99.213 Obesity complicating pregnancy, third trimester (principal); Z3A.36 36 weeks gestation of pregnancy

== ENCOUNTER 2021-05-28 07:12 | Inpatient (IN) | payer OTHER ==
[~2021-05-28] VITALS: Ht 157.5 cm; Wt 91.1 kg
[2021-05-28] VITALS (9 sets, daily range): BP systolic 117–145; BP diastolic 57–71
[2021-05-28] MEDS ORDERED: HOME MED LIST COMPLETE! XX SCH (07:40)
[2021-05-28] MEDS ORDERED: LACTATED RINGER'S 1000 ML IV STA (10:28)
[2021-05-28] MEDS ORDERED: LR 1,000 ML IV SCH (10:30)
[2021-05-28] MEDS ORDERED: METHYLERGONOVINE MALEATE 0.2 MG/ML VIAL (J2210) IM PRN (10:30)
[2021-05-28] MEDS ORDERED: CARBOPROST TROMETHAMINE 250 MCG/ML AMP IM PRN (10:30)
[2021-05-28] MEDS ORDERED: TRANEXAMIC ACID INJection 1,000 MG in NS 100 ML IV PRN (10:30)
[2021-05-28] MEDS ORDERED: LIDOCAINE 1% MDV 20ML VIAL INFIL PRN (10:30)
--- NOTE | 2021-05-28 10:32 | HPEPDOC ---
Obstetrical History & Physical General Date of Admission May 28, 2021 at 10:28 Primary Care Physician: ARABELLA NÚÑEZ CNM History of Present Illness Salima is a 20 year old at 38 5/7 as confirmed by LMP. She established care in the 20th week at [facility] and her has been complicated by a history of gastric bypass, anemia, being late for , and Covid infection in March. She reports good movement, bloody show, and uterine contractions that are increasing in frequency and intensity. She denies any vaginal bleeding. Chief Complaint: Contractions, term Information Provided By: Patient Age: 20 : 3 Term: 2 Pre-term: 0 Abortions: 0 Livin Care Care: Good Care Dating Final EDC: Jun 06, 2021 Final EDC by: LMP LMP: Aug 07, 2020 EGA at Admission: 38.5 Antepartum Course Diagnos(e)s anemia complicated by history of gastric bypass late to care Height (inches): 62 Pre- weight (lbs.): 201.6 Past Medical History Past Obstetrical History #1: Past Obstetrical History: Multigravida Date of Delivery: Jun 24, 2018 Gestation: 40.2 Type of Delivery: Spontaneous Vaginal Del. Sex of Infant: Female (6# 8oz) Complications: No Past Obstetrical History #2: Past Obstetrical History: Multigravida Date of Delivery: Jan 27, 2020 Gestation: 40.1 Type of Delivery: Spontaneous Vaginal Del. Sex of Infant: Male (6# 12oz) Complications: No NET LEAD DEVELOPER History: History of STD Past Medical History Medical History History of gastric bypass, anemia, Covid + 03/24/2021, obesity, history of cholelithiasis Surgical History: Tonsilectomy, Other (gastric bypass) Family History Significant Family History: Renal disease, Other Family History hx of hypothyroid, DM, renal disease, CF and Spina Bifida, Downs Social History Social history partner is present and at the bedside Marital Status: Family situation: Spouse/partner home Psychosocial History: No pertinent psych hx * Smoker: non-smoker Alcohol: Denies Drugs: denies Abuse Violence Screening Have you been hit/kicked/slapp: No Have you been sexually assault: No Imunizations Tdap status: declined Influenza Status: declined Allergies Coded Allergies: ceftriaxone (Verified Allergy, Intermediate, rashe, 04/12/19) Medications No Active Prescriptions or Reported Meds Physical Examination Physical Examination GENERAL: Alert and oriented times three. ABDOMEN: Gravid and non-tender to touch. FETUS: Is vertex (VTX) by sterile vaginal examination (SVE), fetus is vertex (VTX) by Aime. LUNGS: breathing comfortably on room air, no use of accessory muscles. SVE: 6-7/90%/0. Cervix is midposition and soft. FHR 120 with moderate variability. Uterine contractions Q1-5 minutes. EXTREMITIES: bilateral pedal edema. Vital Signs/I&O Vital Signs Date Time Temp Pulse Resp B/P (MAP) Pulse Ox O2 Delivery O2 Flow Rate FiO2 05/28/21 07:29 97.6 54 18 124/66 (85) Laboratory Data Urine Culture: No Growth Pertinent Laboratoy Data Blood Type: A+ RBC Antibody Screen: Negative HIV: Negative Hepatitis B: Negative Hepatitis C: Negative Rapid Plasma Reagin: Nonreactive Rubella: Immune Chlamydia/Gonorrhea: Negative Group B Streptococcus: Negative Quad Screen Test: Declined Cystic Fibrosis: Declined Anatomy Ultrasound Ultrasound Date: Jan 18, 2021 Placenta Location: Anterior Normal Anatomy: Yes Placenta Previa: No Vaginal Examination Dilation: 6 cm Effacement: 90% Station: 0 Cervical Consistency: Soft Cervical Position: Middle Presentation: Cephalic presentation Assessment Heart Rate (FHR): 125 Variability: Moderate Accelerations: Positive Decelerations: None Tocometer Contractions: Yes Frequency: every 2-5 min. Multi-drug resistant Organism: No history of MDRO Assessment/Plan Assessment IUP at 38 5/7, category 1 tracing, in active labor, GBS negative Plan Admit to labor and delivery. OOB ad reed. Diet: clears. Group B Streptococcus (GBS) negative. Labs and intravenous (IV) per unit protocol. Anesthesia consult per patient request. Lactated Ringers (LR): Bolus 800 mL, then at 125 mL/hr if epidural Anticipate cervical change and normal spontaneous delivery (). C-S as appropriate. ARABELLA NÚÑEZ CNM May 28, 2021 10:32
--- OUTSIDE RECORDS SUMMARY | 2021-05-28 10:32 | CCD ---
Author Author [facility] Organization [facility] Address Unknown Phone Unavailable Care Team Providers Care Foot Press Operator Name Role Phone Mariana Segundo Unavailable PROBLEMS Type Condition ICD9-CM Code [id number] Code Onset Dates Condition S tatus W/U Status Risk SNOMED Code Notes Problem Anxiety F41.9 Active confirmed 07290137 Problem Obesity complicating in third trimester O99.213 Active confirmed Problem Blood pressure check Z01.30 Active confirmed 768185546 Problem Bariatric surgery status complicating , third trimester O99.843 Active confirmed 215298170 Problem Supervision of other normal Z34.80 Active 237605481 ALLERGIES Allergen (clinical drug ingredient) Drug/Non Drug Allergy do cumented on EMR Reaction Allergy Type Onset Date Status Rocephin Hives Drug Allergy Active ENCOUNTERS from 1998 to 2021-04-23 Encounter Location Date Provider Diagnosis [facility] [address] [place] [phone] [place] [address] Apr, Mariana Segundo IMMUNIZATIONS No Information SOCIAL HISTORY Tobacco Use: Social History Observation Description Date Details (start date - stop date) Never Smoker Sex Assigned At : Social History Observation Description Sex Assigned At Unknown Education: Question Answer Notes Level of Education: High School Language: Question Answer Notes Languages spoken: Swedish Buddhism: Question Answer Notes Buddhism 33 None Alcohol Screening: Question Answer Notes Did you have a drink containing alcohol in the past year? No Points 0 Interpretation Negative Tobacco Use: Question Answer Notes Are you a: never smoker REASON FOR REFERRAL No Information VITAL SIGNS No information MEDICATIONS No Information PROCEDURES No Information RESULTS No Results REASON FOR VISIT Complaints MEDICAL (GENERAL) HISTORY Type Description Date Medical History Obesity Medical History Hx of Cholelithiasis Surgical History Oral surgery 09/16/17 Surgical History Gastric bypass 03/2019 Surgical History Tonsillectomy 2005 Hospitalization History childbirth Hospitalization History gastric bypass Goals Section No Information Health Concerns No Information MEDICAL EQUIPMENT No Information MENTAL STATUS No Information FUNCTIONAL STATUS No Information ASSESSMENTS No Information PLAN OF TREATMENT Next Appt Details Provider Name:Quita Calle MaxiPhiliprob, 2021-04-05 8 11:30:00 AM, [address] [facility], , [place], [address], Provider Name:José Mann, 01:00:00 PM, [address] [place] [address], , [place], [address], Insurance Providers Payer Name Payer Address Payer Phone Insured Name Patient Relati onship to Insured Coverage Start Date Coverage End Date [facility] CLAIMS DEPT [address] [facility] [phone] BRYAN GOLD self
--- OUTSIDE RECORDS SUMMARY | 2021-05-28 10:32 | CCD ---
Author Author [facility] Organization [facility] Address Unknown Phone Unavailable Care Team Providers Care Computer Equipment Installer Name Role Phone Mariana Segundo Unavailable PROBLEMS Type Condition ICD9-CM Code CXV46-PV Code Onset Dates Condition S tatus W/U Status Risk SNOMED Code Notes Problem Anxiety F41.9 Active confirmed 55975498 Problem Obesity complicating in third trimester O99.213 Active confirmed Problem Blood pressure check Z01.30 Active confirmed 147869976 Problem Bariatric surgery status complicating , third trimester O99.843 Active confirmed 686289216 Problem Supervision of other normal Z34.80 Active 577903243 ALLERGIES Allergen (clinical drug ingredient) Drug/Non Drug Allergy do cumented on EMR Reaction Allergy Type Onset Date Status Rocephin Hives Drug Allergy Active ENCOUNTERS from 1998 to 2021-04-30 Encounter Location Date Provider Diagnosis [facility] [address] [place] [phone] [place] [address] Apr, Mariana Segundo IMMUNIZATIONS No Information SOCIAL HISTORY Tobacco Use: Social History Observation Description Date Details (start date - stop date) Never Smoker Sex Assigned At : Social History Observation Description Sex Assigned At Unknown Education: Question Answer Notes Level of Education: High School Language: Question Answer Notes Languages spoken: Serbian Moravian: Question Answer Notes Moravian 33 None Alcohol Screening: Question Answer Notes Did you have a drink containing alcohol in the past year? No Points 0 Interpretation Negative Tobacco Use: Question Answer Notes Are you a: never smoker REASON FOR REFERRAL No Information VITAL SIGNS No information MEDICATIONS No Information PROCEDURES No Information RESULTS No Results REASON FOR VISIT complaints MEDICAL (GENERAL) HISTORY Type Description Date Medical [...] Calle MaxiPhiliprob, 2021-04-05 8 11:30:00 AM, [address] [facility], , [place], [address], Provider Name:José Mann, 01:00:00 PM, [address] [place] [address], , [place], [address], Insurance Providers Payer Name Payer Address Payer Phone Insured Name Patient Relati onship to Insured Coverage Start Date Coverage End Date [facility]POR[facility] CLAIMS DEPT [address] [facility] [phone] BRYAN GOLD self
--- OUTSIDE RECORDS SUMMARY | 2021-05-28 10:32 | CCD ---
Author Author [facility] Organization [facility] Address Unknown Phone Unavailable Care Team Providers Care Oracle Hyperion Consultant Name Role Phone José Mann Unavailable PROBLEMS Type Condition ICD9-CM Code FEV12-JK Code Onset Dates Condition S tatus W/U Status Risk SNOMED Code Notes Problem Supervision of other normal Z34.80 Active 564214722 Problem Anxiety F41.9 Active confirmed 56818826 Problem Bariatric surgery status complicating , third trimester O99.843 Active confirmed 258425332 ALLERGIES Allergen (clinical drug ingredient) Drug/Non Drug Allergy do cumented on EMR Reaction Allergy Type Onset Date Status Rocephin Hives Drug Allergy Active ENCOUNTERS from 1998 to 2021-03-29 Encounter Location Date Provider Diagnosis [address] [phone] [place] [address] Mar, José Mann IMMUNIZATIONS No Information SOCIAL HISTORY Tobacco Use: Social History Observation Description Date Details (start date - stop date) Never Smoker Sex Assigned At : Social History Observation Description Sex Assigned At Unknown Education: Question Answer Notes Level of Education: High School Language: Question Answer Notes Languages spoken: Frisian Voodoo: Question Answer Notes Voodoo 33 None Alcohol Screening: Question Answer Notes Did you have a drink containing alcohol in the past year? No Points 0 Interpretation Negative Tobacco Use: Question Answer Notes Are you a: never smoker REASON FOR REFERRAL No Information VITAL SIGNS No information MEDICATIONS No Information PROCEDURES No Information RESULTS No Results REASON FOR VISIT ?positive covid MEDICAL (GENERAL) HISTORY Type Description Date Medical [...] OF TREATMENT Next Appt Details Provider Name:Quita Leon, 7 02:00:00 PM, [address] [facility], , [place], [address], Provider Name:José Mann, 01:00:00 PM, [address] [place] [address], , [place], [address], Insurance Providers Payer Name Payer Address Payer Phone Insured Name Patient Relati onship to Insured Coverage Start Date Coverage End Date [facility] CLAIMS DEPT [address] [facility] [phone] BRYAN GOLD self
--- OUTSIDE RECORDS SUMMARY | 2021-05-28 10:32 | CCD ---
Author Author [facility] Organization [facility] Address Unknown Phone Unavailable Care Team Providers Care Manager Cost Name Role Phone SanyaDavida Unavailable PROBLEMS Type Condition ICD9-CM Code [id number] Code Onset Dates Condition S tatus W/U Status Risk SNOMED Code Notes Problem Anxiety F41.9 Active confirmed 01828518 Problem Obesity complicating in third trimester O99.213 Active confirmed Problem Blood pressure check Z01.30 Active confirmed 972197397 Problem Bariatric surgery status complicating , third trimester O99.843 Active confirmed 105185975 Problem Supervision of other normal Z34.80 Active 278770676 ALLERGIES Allergen (clinical drug ingredient) Drug/Non Drug Allergy do cumented on EMR Reaction Allergy Type Onset Date Status Rocephin Hives Drug Allergy Active ENCOUNTERS from 1998 to 2021-04-24 Encounter Location Date Provider Diagnosis [facility] [address] [place] [address] [place] [address] Apr, Mariana Segundo Blood pressure check Z01.30 IMMUNIZATIONS No Information SOCIAL HISTORY Tobacco Use: Social History Observation Description Date Details (start date - stop date) Never Smoker Sex Assigned At : Social History Observation Description Sex Assigned At Unknown Education: Question Answer Notes Level of Education: High School Language: Question Answer Notes Languages spoken: Finnish Cheondoism: Question Answer Notes Cheondoism 33 None Alcohol Screening: Question Answer Notes Did you have a drink containing alcohol in the past year? No Points 0 Interpretation Negative Tobacco Use: Question Answer Notes Are you a: never smoker REASON FOR REFERRAL No Information VITAL SIGNS Weight 200 lbs 20 Apr, 2021 Height 62 in 20 Sep, 2021 BMI 36.58 kg/m2 Apr, Blood pressure systolic 126 mm Hg Apr, Blood pressure diastolic 70 mm Hg Apr, MEDICATIONS No Known Medications PROCEDURES from 1998 to 2021-04-24 Procedure Date Ordered Result Body Site Nurse Visit Blood Pressure Check 2021-04-23 Normal RESULTS No Results REASON FOR VISIT Blood Pressure Check MEDICAL (GENERAL) HISTORY Type Description Date Medical History Obesity Medical History Hx of Cholelithiasis Surgical History Oral surgery 09/16/17 Surgical History Gastric bypass 03/2019 Surgical History Tonsillectomy 2004 Hospitalization History childbirth Hospitalization History gastric bypass Goals Section No Information Health Concerns No Information MEDICAL EQUIPMENT No Information MENTAL STATUS No Information FUNCTIONAL STATUS No Information ASSESSMENTS Encounter Date Diagnosis Assessment Notes Treatment Notes Treatm ent Clinical Notes Apr, Blood pressure check (ICD-10 - Z01.30) PLAN OF TREATMENT Next Appt Details Provider Name:Quita Leon, 2021-04-05 8 11:30:00 AM, [address] [facility], , [place], [address], Provider Name:José Mann, 01:00:00 PM, [facility], , [place], [address], Insurance Providers Payer Name Payer Address Payer Phone Insured Name Patient Relati onship to Insured Coverage Start Date Coverage End Date [facility] CLAIMS DEPT [address] [place] [phone] BRYAN GOLD self
--- OUTSIDE RECORDS SUMMARY | 2021-05-28 10:32 | CCD ---
Author Author [facility] [employer] [facility] Organization [facility] [employer] [facility] Address Unknown Phone Unavailable Care Team Providers Care Entry Level Manager Name Role Phone Quita Leon Unavailable PROBLEMS Type Condition ICD9-CM Code ICI78-OV Code Onset Dates Condition S tatus W/U Status Risk SNOMED Code Notes Problem Obesity complicating in third trimester O99.213 Active confirmed Problem Obesity, unspecified E66.9 Active confirmed 198985876 Problem Blood pressure check Z01.30 Active confirmed 849000863 Problem Bariatric surgery status complicating , third trimester O99.843 Active confirmed 932892095 Problem Supervision of other normal Z34.80 Active 683444227 Problem Anxiety F41.9 Active confirmed 49108524 ALLERGIES Allergen (clinical drug ingredient) Drug/Non Drug Allergy do cumented on EMR Reaction Allergy Type Onset Date Status Rocephin Hives Drug Allergy Active ENCOUNTERS from 1998 to 2021-05-14 Encounter Location Date Provider Diagnosis [facility] [facility] [phone] [place] [address] 08 May, 2021 Elizabethtontheodore Leon Obesity complicating in third trimester O99.213 ; Bariatric surgery status complicating , third trimester O99.843 and 36 weeks gestation of Z3A.36 IMMUNIZATIONS No Information SOCIAL HISTORY Tobacco Use: Social History Observation Description Date Details (start date - stop date) Never Smoker Sex Assigned At : Social History Observation Description Sex Assigned At Unknown Education: Question Answer Notes Level of Education: High School Language: Question Answer Notes Languages spoken: Cambodian Religious: Question Answer Notes Religious 33 None Alcohol Screening: Question Answer Notes Did you have a drink containing alcohol in the past year? No Points 0 Interpretation Negative Tobacco Use: Question Answer Notes Are you a: never smoker REASON FOR REFERRAL No Information VITAL SIGNS Weight 202 lbs May, Weight-kg 91.63 kg May, Height 62 in May, BMI 36.946 kg/m2 May, Blood pressure systolic 118 mm Hg May, Blood pressure diastolic 78 mm Hg May, MEDICATIONS No Known Medications PROCEDURES No Information RESULTS Component Value Reference Range CBC - Complete Blood Count Reviewed date:05/11/2021 17:55:58 Interpretation: Performing Lab:[facility] LABORATORY [address] [place] [address] , ,[place] [address] WHITE BLOOD COUNT 8.7 4.0-10.0 RED BLOOD COUNT 4.12 4.00-5.40 HEMOGLOBIN 9.0 12.0-15.5 HEMATOCRIT 30.7 36.0-47.0 MEAN CORPUSCULAR VOLUME 74.5 80.0-96.0 MEAN CORPUSCULAR HEMOGLOBIN 21.8 27.0-33.0 MEAN CORPUSCULAR HGB CONC 29.3 32.0-36.5 RED CELL DISTRIBUTION WIDTH 15.9 11.5-14.5 PLATELET COUNT, AUTOMATED 282 150-450 CHLAMYDIA & GC DNA AMPLIFICAT Reviewed date:05/11/2021 17:51:48 Interpretation: Performing Lab:[facility] LABORATORY [address] [place] [address] , ,[place] [address] CHLAMYDIA DNA AMPLIFICATION NEGATIVE NEGATIVE GC DNA AMPLIFICATION NEGATIVE NEGATIVE GROUP B STREP CULTURE Reviewed date:05/14/2021 06:56:26 Interpretation: Performing Lab:[facility] LABORATORY [address] [facility] [address] [address] , ,[facility] REASON FOR VISIT 1 wk pn MEDICAL (GENERAL) HISTORY Type Description Date Medical [...] Notes Treatment Notes Treatm ent Clinical Notes May, Obesity complicating pregnan cy in third trimester (ICD-10 - O99.213) May, Bariatric surgery status com plicating , third trimester (ICD-10 - O99.843) May, 36 weeks gestation of (ICD-10 - Z3A.36 ) PLAN OF TREATMENT Treatment Notes Test Name Order Date [facility] OBS FOLLOW UP OR REPEAT 2021-05-11 Type and Screen (D Rh Antibody Screen) 2021-05-11 Next Appt Details 1 Week Reason: Provider Name:Mariana Segundo, 2021-05-17 03:40:00 PM, [address] [place] [address], , [place], [address], Provider Name:Quita Leon, 2021-05-05 2 11:40:00 AM, [address] [place] [address], , [place], [address], Provider Name:Mariana Segundo, 2021-06-01 01:40:00 PM, [address] [place] [address] , [place], [address], Provider Name:José Mann, 01:00:00 PM, [address] [place] [address], , [place], [address], Follow Up:1 WeekPrenatal Insurance Providers Payer Name Payer Address Payer Phone Insured Name Patient Relati onship to Insured Coverage Start Date Coverage End Date [facility] CLAIMS DEPT [address] [facility] [phone] BRYAN GOLD self
--- OUTSIDE RECORDS SUMMARY | 2021-05-28 10:32 | CCD ---
Author Author [facility] [employer] [facility] Organization [facility] [employer] [facility] Address Unknown Phone Unavailable Care Team Providers Care Debridging Machine Operator Name Role Phone uQita Leon Unavailable PROBLEMS Type Condition ICD9-CM Code RQL68-MG Code Onset Dates Condition S tatus W/U Status Risk SNOMED Code Notes Problem Obesity complicating in third trimester O99.213 Active confirmed Problem Obesity, unspecified E66.9 Active confirmed 255616738 Problem Blood pressure check Z01.30 Active confirmed 634539406 Problem Bariatric surgery status complicating , third trimester O99.843 Active confirmed 641840122 Problem Supervision of other normal Z34.80 Active 011641799 Problem Anxiety F41.9 Active confirmed 46245630 ALLERGIES Allergen (clinical drug ingredient) Drug/Non Drug Allergy do cumented on EMR Reaction Allergy Type Onset Date Status Rocephin Hives Drug Allergy Active ENCOUNTERS from 1998 to 2021-05-11 Encounter Location Date Provider Diagnosis [facility] [address] [place] [address] [place] [address] Apr, Quita Leon Obesity complicating in third trimester O99.213 ; Obesity, unspecified E66.9 and 34 weeks gestation of Z3A.34 IMMUNIZATIONS No Information SOCIAL HISTORY Tobacco Use: Social History Observation Description Date Details (start date - stop date) Never Smoker Sex Assigned At : Social History Observation Description Sex Assigned At Unknown Education: Question Answer Notes Level of Education: High School Language: Question Answer Notes Languages spoken: Bahamian Catholic: Question Answer Notes Catholic 33 None Alcohol Screening: Question Answer Notes Did you have a drink containing alcohol in the past year? No Points 0 Interpretation Negative Tobacco Use: Question Answer Notes Are you a: never smoker REASON FOR REFERRAL No Information VITAL SIGNS Weight 209 lbs Apr, Weight-kg 94.8 kg Apr, Height 62 in Apr, BMI 38.22 kg/m2 Apr, Blood pressure systolic 120 mm Hg Apr, Blood pressure diastolic 76 mm Hg Apr, MEDICATIONS No Known Medications PROCEDURES No Information RESULTS No Results REASON FOR VISIT 3 WK PN MEDICAL (GENERAL) HISTORY Type Description Date Medical [...] Treatment Notes Treatm ent Clinical Notes Apr, Obesity, unspecified (ICD-10 - E66.9) Apr, Obesity complicating pregnan cy in third trimester (ICD-10 - O99.213) Apr, 34 weeks gestation of (ICD-10 - Z3A.34 ) PLAN OF TREATMENT Next Appt Details 1-2 weeks Reason: Provider Name:Mariana Segundo, 2021-05-17 03:40:00 PM, [address] [place] [address] , [place], [address], Provider Name:Quita Leon, 2021-05-05 2 11:40:00 AM, [address] [place] [address] , [place], [address], Provider Name:Mariana Segundo, 2021-06-01 01:40:00 PM, [address] [place] [address] , [place], [address], Provider Name:José Mann, 01:00:00 PM, [address] [place] [address] , [place], [address], Follow Up:1-2 weeksPrenatal Insurance Providers Payer Name Payer Address Payer Phone Insured Name Patient Relati onship to Insured Coverage Start Date Coverage End Date [facility]POR[facility] CLAIMS DEPT [address] [facility] [phone] BRYAN GOLD self
--- OUTSIDE RECORDS SUMMARY | 2021-05-28 10:32 | CCD ---
Author Author [facility] [employer] [facility] Organization [facility] [employer] [facility] Address Unknown Phone Unavailable Care Team Providers Care Lead Furnace Operator Name Role Phone Zaheer Childs Unavailable PROBLEMS Type Condition ICD9-CM Code [id number] Code Onset Dates Condition S tatus W/U Status Risk SNOMED Code Notes Problem Supervision of other normal Z34.80 Active 375181739 Problem Anxiety F41.9 Active confirmed 42470837 Problem Bariatric surgery status complicating , third trimester O99.843 Active confirmed 254095687 ALLERGIES Allergen (clinical drug ingredient) Drug/Non Drug Allergy do cumented on EMR Reaction Allergy Type Onset Date Status Rocephin Hives Drug Allergy Active ENCOUNTERS from 1998 to 2021-03-07 Encounter Location Date Provider Diagnosis [facility] [address] [place] [address] [place] [address] Feb, Zaheer Childs Encounter for pregna ncy related examination in second trimester Z34.82 and 25 weeks gestation of Z3A.25 IMMUNIZATIONS No Information SOCIAL HISTORY Tobacco Use: Social History Observation Description Date Details (start date - stop date) Never Smoker Sex Assigned At : Social History Observation Description Sex Assigned At Unknown Education: Question Answer Notes Level of Education: High School Language: Question Answer Notes Languages spoken: Spanish Protestant: Question Answer Notes Protestant 33 None Alcohol Screening: Question Answer Notes Did you have a drink containing alcohol in the past year? No Points 0 Interpretation Negative Tobacco Use: Question Answer Notes Are you a: never smoker REASON FOR REFERRAL No Information VITAL SIGNS Weight 202 lbs Feb, Height 62 in 22 [place], 2021 BMI 36.94 kg/m2 Feb, Blood pressure systolic 118 mm Hg Feb, Blood pressure diastolic 72 mm Hg Feb, MEDICATIONS No Known Medications PROCEDURES No Information RESULTS No Results REASON FOR VISIT 4 wk pn MEDICAL (GENERAL) HISTORY Type Description [...] Notes Treatment Notes Treatm ent Clinical Notes Feb, Encounter for rela yin examination in second trimester (ICD-10 - Z34.82) Feb, 25 weeks gestation of (ICD-10 - Z3A.25 ) PLAN OF TREATMENT Treatment Notes Test Name Order Date CBC - Complete Blood Count 2021-02-22 Type and Screen (D Rh Antibody Screen) 2021-02-22 CHLAMYDIA & GC DNA AMPLIFICAT 2021-02-22 Next Appt Details Provider Name:Aiyana Arita, 2021-03 02:20:00 PM, [address], , [place], [address], Provider Name:José Mann, 01:00:00 PM, [address] [place] [address], , [place], [address], Insurance Providers Payer Name Payer Address Payer Phone Insured Name Patient Relati onship to Insured Coverage Start Date Coverage End Date [facility] CORPORATE CLAIMS DEPT [address] [facility] [phone] BRYAN GOLD self
--- OUTSIDE RECORDS SUMMARY | 2021-05-28 10:32 | CCD ---
Author Author [facility] [employer] [facility] [employer] Organization [facility] [employer] [facility] [employer] Address Unknown Phone Unavailable Care Team Providers Care Animal Trapper Name Role Phone Abbey Elsie Unavailable PROBLEMS Type Condition ICD9-CM Code [id number] Code Onset Dates Condition S tatus W/U Status Risk SNOMED Code Notes Problem Obesity complicating in third trimester O99.213 Active confirmed Problem Obesity, unspecified E66.9 Active confirmed 801908913 Problem Blood pressure check Z01.30 Active confirmed 928137418 Problem Bariatric surgery status complicating , third trimester O99.843 Active confirmed 820751919 Problem Supervision of other normal Z34.80 Active 400310444 Problem Anxiety F41.9 Active confirmed 51554868 ALLERGIES Allergen (clinical drug ingredient) Drug/Non Drug Allergy do cumented on EMR Reaction Allergy Type Onset Date Status Rocephin Hives Drug Allergy Active ENCOUNTERS from 1998 to 2021-05-10 Encounter Location Date Provider Diagnosis [facility] [address] [place] [address] [place] [address] May, Elsie Potter IMMUNIZATIONS No Information SOCIAL HISTORY Tobacco Use: Social History Observation Description Date Details (start date - stop date) Never Smoker Sex Assigned At : Social History Observation Description Sex Assigned At Unknown Education: Question Answer Notes Level of Education: High School Language: Question Answer Notes Languages spoken: Indonesian Yazidism: Question Answer Notes Yazidism 33 None Alcohol Screening: Question Answer Notes Did you have a drink containing alcohol in the past year? No Points 0 Interpretation Negative Tobacco Use: Question Answer Notes Are you a: never smoker REASON FOR REFERRAL No Information VITAL SIGNS No information MEDICATIONS No Information PROCEDURES No Information RESULTS No Results REASON FOR VISIT verify MEDICAL (GENERAL) HISTORY Type Description Date Medical [...] TREATMENT Next Appt Details Provider Name:Quita Leon, 2021-05-0 8 10:20:00 AM, [address] [facility], , [place], [address], Provider Name:José Mann, 01:00:00 PM, [address] [place] [address], , [place], [address], Insurance Providers Payer Name Payer Address Payer Phone Insured Name Patient Relati onship to Insured Coverage Start Date Coverage End Date [facility] CORPORATE CLAIMS DEPT [address] [facility] [phone] BRYAN GOLD self
--- OUTSIDE RECORDS SUMMARY | 2021-05-28 10:32 | CCD ---
Author Author [facility] [employer] Organization [facility] [employer] Address Unknown Phone Unavailable Care Team Providers Care Nuclear Cardiology Technologist Name Role Phone Quita Leon Unavailable PROBLEMS Type Condition ICD9-CM Code [id number] Code Onset Dates Condition S tatus W/U Status Risk SNOMED Code Notes Problem Anxiety F41.9 Active confirmed 70276105 Problem Obesity complicating in third trimester O99.213 Active confirmed Problem Blood pressure check Z01.30 Active confirmed 412368143 Problem Bariatric surgery status complicating , third trimester O99.843 Active confirmed 671388641 Problem Supervision of other normal Z34.80 Active 697448691 ALLERGIES Allergen (clinical drug ingredient) Drug/Non Drug Allergy do cumented on EMR Reaction Allergy Type Onset Date Status Rocephin Hives Drug Allergy Active ENCOUNTERS from 1998 to 2021-05-09 Encounter Location Date Provider Diagnosis [facility] [phone] [place] [address] Apr, Quita Leon Bariatric surgery st atus complicating , third trimester O99.843 ; Obesity complicating in third trimester O99.213 and 31 weeks gestation of Z3A.31 IMMUNIZATIONS No Information SOCIAL HISTORY Tobacco Use: Social History Observation Description Date Details (start date - stop date) Never Smoker Sex Assigned At : Social History Observation Description Sex Assigned At Unknown Education: Question Answer Notes Level of Education: High School Language: Question Answer Notes Languages spoken: Syrian Jainism: Question Answer Notes Jainism 33 None Alcohol Screening: Question Answer Notes Did you have a drink containing alcohol in the past year? No Points 0 Interpretation Negative Tobacco Use: Question Answer Notes Are you a: never smoker REASON FOR REFERRAL No Information VITAL SIGNS Weight 200.8 lbs Apr, Weight-kg 91.08 kg Apr, Height 62 in Apr, BMI 36.727 kg/m2 Apr, Blood pressure systolic 122 mm Hg Apr, Blood pressure diastolic 70 [...] Treatment Notes Treatm ent Clinical Notes Apr, Bariatric surgery status com plicating , third trimester (ICD-10 - O99.843) Apr, Obesity complicating pregnan cy in third trimester (ICD-10 - O99.213) Apr, 31 weeks gestation of (ICD-10 - Z3A.31 ) PLAN OF TREATMENT Next Appt Details 2-3 weeks Reason: Provider Name:Quita Leon, 2021-05-0 8 10:20:00 AM, [address] [facility], , [place], [address], Provider Name:José Mann, 01:00:00 PM, [address] [place] [address], , [place], [address], Follow Up:2-3 weeksPrenatal Insurance Providers Payer Name Payer Address Payer Phone Insured Name Patient Relati onship to Insured Coverage Start Date Coverage End Date [employer] CORPORATE CLAIMS DEPT [address] [place] [phone] BRYAN GOLD self
--- OUTSIDE RECORDS SUMMARY | 2021-05-28 10:32 | CCD ---
Author Author [facility] [employer] Organization [facility] Address Unknown Phone Unavailable Care Team Providers Care Postbed Stitcher Name Role Phone Aiyana Arita Unavailable PROBLEMS Type Condition ICD9-CM Code TSI85-TU Code Onset Dates Condition S tatus W/U Status Risk SNOMED Code Notes Problem Supervision of other normal Z34.80 Active 042446768 Problem Anxiety F41.9 Active confirmed 11818288 Problem Bariatric surgery status complicating , third trimester O99.843 Active confirmed 203613110 ALLERGIES Allergen (clinical drug ingredient) Drug/Non Drug Allergy do cumented on EMR Reaction Allergy Type Onset Date Status Rocephin Hives Drug Allergy Active ENCOUNTERS from 1998 to 2021-03-21 Encounter Location Date Provider Diagnosis [facility] [address] [facility] [phone] [place] [address] Mar, Aiyana Arita Bariatric surgery st atus complicating , third trimester O99.843 ; Obesity complicating in third trimester O99.213 ; Obesity, unspecified classification, unspecified obesity type, unspecified whether serious comorbidity present E66.9 and 28 weeks gestation of Z3A.28 IMMUNIZATIONS No Information SOCIAL HISTORY Tobacco Use: Social History Observation Description Date Details (start date - stop date) Never Smoker Sex Assigned At : Social History Observation Description Sex Assigned At Unknown Education: Question Answer Notes Level of Education: High School Language: Question Answer Notes Languages spoken: Welsh Roman Catholic: Question Answer Notes Roman Catholic 33 None Alcohol Screening: Question Answer Notes Did you have a drink containing alcohol in the past year? No Points 0 Interpretation Negative Tobacco Use: Question Answer Notes Are you a: never smoker REASON FOR REFERRAL No Information VITAL SIGNS Weight 203.0 lbs Mar, Weight-kg 92.08 kg Mar, Height 62 in Mar, BMI 37.129 kg/m2 Mar, Blood pressure systolic 120 mm Hg Mar, Blood pressure diastolic 72 mm Hg Mar, MEDICATIONS No Known Medications PROCEDURES No Information [...] Notes Treatment Notes Treatm ent Clinical Notes Mar, Bariatric surgery status com plicating , third trimester (ICD-10 - O99.843) Mar, Obesity complicating pregnan cy in third trimester (ICD-10 - O99.213) Mar, Obesity, unspecified classif ication, unspecified obesity type, unspecified whether serious comorbidity present (ICD-10 - E66.9) Mar, 28 weeks gestation of (ICD-10 - Z3A.28 ) PLAN OF TREATMENT Next Appt Details 4 Weeks Reason:PN Provider Name:Quita Leon, 7 02:00:00 PM, [address] [facility], , [place], [address], Provider Name:José Mann, 01:00:00 PM, [address] [facility], , [place], [address], Follow Up:4 WeeksPN Insurance Providers Payer Name Payer Address Payer Phone Insured Name Patient Relati onship to Insured Coverage Start Date Coverage End Date [facility] CORPORATE CLAIMS DEPT [address] [place] [address] [phone] BRYAN GOLD self
--- OUTSIDE RECORDS SUMMARY | 2021-05-28 10:32 | CCD ---
Author Author [facility] Organization [facility] Address Unknown Phone Unavailable Care Team Providers Care Farmworker Fur Name Role Phone Green TAIL PULLER TAIL PULLER, Sabrina Unavailable Unavailable Green TAIL PULLER TAIL PULLER, Sabrina Unavailable Unavailable Green TAIL PULLER TAIL PULLER, Sabrina Unavailable Unavailable Green TAIL PULLER TAIL PULLER, Sabrina Unavailable Unavailable Green TAIL PULLER TAIL PULLER, Sabrina Unavailable Unavailable Obradovic, Vladan Unavailable Unavailable Obradovic, Vladan Unavailable Unavailable Obradovic, Vladan Unavailable Unavailable Obradovic, Vladan Unavailable Unavailable Obradovic, Vladan Unavailable Unavailable Obradovic, Vladan Unavailable Unavailable Obradovic, Vladan Unavailable Unavailable Obradovic, Vladan Unavailable Unavailable Obradovic, Vladan Unavailable Unavailable Obradovic, Vladan Unavailable Unavailable Obradovic, Vladan Unavailable Unavailable Obradovic, Vladan Unavailable Unavailable Obradovic, Vladan Unavailable Unavailable Obradovic, Vladan Unavailable Unavailable Obradovic, Vladan Unavailable Unavailable Obradovic, Vladan Unavailable Unavailable Obradovic, Vladan Unavailable Unavailable Obradovic, Vladan Unavailable Unavailable Obradovic, Vladan Unavailable Unavailable Obradovic, Vladan Unavailable Unavailable Obradovic, Vladan Unavailable Unavailable Obradovic, Vladan Unavailable Unavailable Obradovic, Vladan Unavailable Unavailable Obradovic, Vladan Unavailable Unavailable Obradovic, Vladan Unavailable Unavailable Obradovic, Vladan Unavailable Unavailable Obradovic, Vladan Unavailable Unavailable Obradovic, Vladan Unavailable Unavailable Obradovic, Vladan Unavailable Unavailable Obradovic, Vladan Unavailable Unavailable Obradovic, Vladan Unavailable Unavailable Obradovic, Vladan Unavailable Unavailable Obradovic, Vladan Unavailable Unavailable Obradovic, Vladan Unavailable Unavailable Obradovic, Vladan Unavailable Unavailable Obradovic, Vladan Unavailable Unavailable Obradovic, Vladan Unavailable Unavailable Obradovic, Vladan Unavailable Unavailable Obradovic, Vladan Unavailable Unavailable Obradovic, Vladan Unavailable Unavailable Obradovic, Vladan Unavailable Unavailable Obradovic, Vladan Unavailable Unavailable Obradovic, Vladan Unavailable Unavailable Obradovic, Vladan Unavailable Unavailable Obradovic, Vladan Unavailable Unavailable Obradovic, Vladan Unavailable Unavailable Obradovic, Vladan Unavailable Unavailable Obradovic, Vladan Unavailable Unavailable PENDLETON, G EDWARD RPA Unavailable Unavailable PENDLETON, G EDWARD RPA Unavailable Unavailable PENDLETON, G EDWARD RPA Unavailable Unavailable PENDLETON, G EDWARD RPA Unavailable Unavailable PENDLETON, G EDWARD RPA Unavailable Unavailable PENDLETON, G EDWARD RPA Unavailable Unavailable PENDLETON, G EDWARD RPA Unavailable Unavailable PENDLETON, G EDWARD RPA Unavailable Unavailable PENDLETON, G EDWARD RPA Unavailable Unavailable PENDLETON, G EDWARD RPA Unavailable Unavailable PENDLETON, G EDWARD RPA Unavailable Unavailable PENDLETON, G EDWARD RPA Unavailable Unavailable PENDLETON, G EDWARD RPA Unavailable Unavailable PENDLETON, G EDWARD RPA Unavailable Unavailable PENDLETON, G EDWARD RPA Unavailable Unavailable PENDLETON, G EDWARD RPA Unavailable Unavailable PENDLETON, G EDWARD RPA Unavailable Unavailable PENDLETON, G EDWARD RPA Unavailable Unavailable PENDLETON, G EDWARD RPA Unavailable Unavailable PENDLETON, G EDWARD RPA Unavailable Unavailable PENDLETON, G EDWARD RPA Unavailable Unavailable PENDLETON, G EDWARD RPA Unavailable Unavailable PENDLETON, G EDWARD RPA Unavailable Unavailable PENDLETON, G EDWARD RPA Unavailable Unavailable PENDLETON, G EDWARD RPA Unavailable Unavailable PENDLETON, G EDWARD RPA Unavailable Unavailable PENDLETON, G EDWARD RPA Unavailable Unavailable PENDLETON, G EDWARD RPA Unavailable Unavailable PENDLETON, G EDWARD RPA Unavailable Unavailable PENDLETON, G EDWARD RPA Unavailable Unavailable PENDLETON, G EDWARD RPA Unavailable Unavailable PENDLETON, G EDWARD RPA Unavailable Unavailable PENDLETON, G EDWARD RPA Unavailable Unavailable PENDLETON, G EDWARD RPA Unavailable Unavailable PENDLETON, G EDWARD RPA Unavailable Unavailable Re-disclosure Warning The records that you are about to access may contain information from federally-assisted alcohol or drug abuse programs. If such information is present, then the following federally mandated warning applies: This information has been disclosed to you from records protected by federal confidentiality rules (42 CFR part 2). The federal rules prohibit you from making any further disclosure of this information unless further disclosure is expressly permitted by the written consent of the person to whom it pertains or as otherwise permitted by 42 CFR part 2. A general authorization for the release of medical or other information is NOT sufficient for this purpose. The Federal rules restrict any use of the information to criminally investigate or prosecute any alcohol or drug abuse patient.The records that you are about to access may contain highly sensitive health information, the redisclosure of which is protected by Article 27-F of the [facility] Public Health law. If you continue you may have access to information: Regarding HIV / AIDS; Provided by facilities licensed or operated by the [facility] Office of Mental Health; or Provided by the [facility] Office for People With Developmental Disabilities. If such information is present, then the following [facility] mandated warning applies: This information has been disclosed to you from confidential records which are protected by state law. State law prohibits you from making any further disclosure of this information without the specific written consent of the person to whom it pertains, or as otherwise permitted by law. Any unauthorized further disclosure in violation of state law may result in a fine or penitentiary sentence or both. A general authorization for the release of medical or other information is NOT sufficient authorization for further disc losure. Allergies and Adverse Reactions Type Description Substance Reaction Status Data Source(s ) Propensity to adverse reactions ceftriaxone Ceftriaxone Ac tive NextGen ([facility]) Family History Family Member Name Family Member Gender Family Member Status Date o f Status Description Data Source(s) Unknown Female Condition [facility] Unknown Female Condition [facility] Unknown Female Condition [facility] Encounters Encounter Providers Location Date Indications Data Source(s ) ( ESTOB) [facility] Est OB [address] [place] [address] 05/11/2021 12:00:00 AM EDT eCW1 ([facility]) Unknown [address] [facility] [address] 05/10/2021 12:00:00 AM EDT eCW1 ([facility]) ( ESTOB) [facility] Est OB [address] [place] [address] 05/01/2021 12:00:00 AM EDT eCW1 ([facility]) Unknown [address] [facility] [place] [address] 04/30/2021 12:00:00 AM EDT eCW1 ([facility]) ( [place]) [facility] Nurse Visit [address] [place] [address] 04/23/2021 12:00:00 AM EDT eCW1 ([facility]) Unknown [address] [facility] [place] [address] 04/23/2021 12:00:00 AM EDT [facility]CW1 ([facility]) ( ESTOB) [facility] Est OB [address] [place] [address] 04/10/2021 12:00:00 AM EDT eCW1 ([facility]) Outpatient Attender: HARESH PENDLETON RPA 03/31 11:32:57 AM EDT - 03/31/2021 12:42:37 PM EDT DocuTap ([facility] ) Unknown [address] [facility] [address] 03/27/2021 12:00:00 AM EDT eCW1 ([facility]) ( ESTOB) [facility] Est OB [address] [place] [address] 03/20/2021 12:00:00 AM EDT eCW1 ([facility]) ( ESTOB) [facility] Est OB [address] [place] [address] 02/22/2021 12:00:00 AM EDT eCW1 ([facility]) ( ESTOB) [facility] Est OB [address] [place] [address] 01/22/2021 12:00:00 AM EDT eCW1 ([facility]) Outpatient [address] [facility] [place] [address] 01/11/2021 12:00:00 AM EDT eCW1 ([facility] ( 1PN) [facility] 1st [address] [place] [address] 12/25/2020 12:00:00 AM EDT eCW1 ([facility]) OutpatientOFFICE VISIT, NEW Attender: Sabrina Aguirre TAIL PULLER TAIL PULLER [facility] 12/20/2020 11:45:00 AM EDT - 12/20/2020 11:45:00 AM EDT Encounter for oth general cnsl and advice on procreationEncounter for test, result positiveEncounter for oth general cnsl and advice on contraceptionOther sex counselingHuman immunodeficiency virus [HIV] counseling NextGen ([facility]) Encounter for oth general cnsl and advic e on procreation Encounter for test, result pos itive Encounter for oth general cnsl and advic e on contraception Other sex counseling Human immunodeficiency virus [HIV] flora cervantes Outpatient [address] [facility] [place] [address] 06/20/2020 12:00:00 AM EST eCW1 ([facility]) [facility] [address] [facility] [address] 05/23/2020 12:00:00 AM EDT eCW1 ([facility]) Inpatient<td>03/25/2019 - 03/26/2019</td ><td ID="[id number]">Hospital Encounter</td><td><paragraph>Med Surg Unit 4-1</paragraph><paragraph>[address]</paragraph><paragraph>[place] [address]</paragraph><paragraph>[phone]</paragraph></td><td><paragraph styleCode="Bold">Deedee Rodgers MD</paragraph><paragraph>[address]</paragraph><paragraph>[phone]</paragraph><paragraph>[place] [address]</paragraph><paragraph>[phone]</paragraph><paragraph> </paragraph></td><td></td> Attender: Deedee RodgersAdmitter: Jose Rodgers [id number] 01/01/2019 05:12:33 PM EDT - 03/26/2019 02:59:00 PM EDT S/P gastric bypass [facility] S/P gastric bypass Patient discharged. Immunizations Vaccine Date Status Description Data Source(s) COVID-19 VACCINE Repairy 05/12/2021 12:00:00 AM EDT completed [facility] Vaccine Series Complete: YESThis Data wa s Submitted to [facility] Via [email or web address]. COVID-19 VACCINE Repairy 04/19/2021 12:00:00 AM EDT completed [facility] Vaccine Series Complete: NOThis Data was Submitted to [facility] Via [email or web address]. Medications No Information Insurance Providers Payer name Policy type / Coverage type Policy ID Covered republican ID Covered republican's relationship to corral Policy Corral Plan Information [facility] [id number] SP [id number] [facility] [id number] SP [id number] 900 [facility] [id number] [facility] MEDICAID [id number] S [id number] [facility] MEDICAID [id number] Emily 7 [id number] [facility] MEDICAID [id number] xxxxxxxxxxx [id number] [place] [employer] [id number] Self [id number] SELF PAY ONLY [id number] SP [id number] [place] [id number] SP [id number] [employer] UN SP [place] [id number] S [id number] SELF PAY O UNAVAILABLE [id number] S UNAVAILA BLE MEDICAID [id number] SP [id number] [place] [facility] MEDICAID [id number] S [id number] [place] [id number] S [id number] MEDICAID M [id number] S [id number] Problems, Conditions, and Diagnoses Code Display Name Description Problem Type Effective Dates Data Source(s) E66.9 Obesity Obesity, unspecified Problem 05/10/2021 12:0 0:00 AM EDT eCW1 ([facility]) Z01.30 [id number] Blood pressure check Problem 04/23/2021 12:0 0:00 AM EDT eCW1 ([facility]) O99.213 Obesity complicating , third tr imester Obesity complicating in third trimester Problem 04/10/2021 12:00:00 AM EDT eCW1 ([facility]) F41.9 [id number] Anxiety Problem 01/11/2021 12:00:00 AM ED T eCW1 ([facility]) Z34.80 care Supervision of other normal P roblem 12/21/2020 12:00:00 AM EDT eCW1 ([facility]) Surgeries/Procedures Procedure Description Date Indications Data Source(s) Nurse Visit Blood Pressure Check 04/23/2021 12:00:00 A M EDT eCW1 ([facility]) CVR Felt Cementer.Svc. STI / H 12/20/2020 12:00:00 AM EDT - 12/20/2020 12:00:00 AM EDT NextGen ([facility]) CVR Felt Cementer.Svc. Other 12/20/2020 12:00:00 AM EDT - 2020 12:00:00 AM EDT NextGen ([facility]) CVR Felt Cementer.Svc. Contraceptive 12/20/2020 12 :00:00 AM EDT - 12/20/2020 12:00:00 AM EDT [facility]Gen ([facility]) CVR Med.Svc. Height/Weight 12/20/2020 12 :00:00 AM EDT - 12/20/2020 12:00:00 AM EDT [facility] ([facility]) CVR Blood Pressure 12/20/2020 12:00:00 AM EDT - 2020 12:00:00 AM EDT [facility]Gen ([facility]) HCS Without Test 12/20/2020 12:00:00 AM EDT - 12/21/19 21 12:00:00 AM EDT [facility] ([facility]) OFFICE VISIT, NEW 12/20/2020 12:00:00 AM EDT - 021 12:00:00 AM EDT [facility] ([facility]) URINE TEST 12/20/2020 12:00:00 AM EDT - 12/20/2020 12:00:00 AM EDT NextGen ([facility]) Results ID Date Data Source GROUP B STREP CULTURE 05/11/2021 12:00:00 AM EDT eCW1 ([facility]) Name Value Range Interpretation Code Description Data Roxana rce(s) Supporting Document(s) GROUP B STREP CULTURE eCW1 ([facility]) ID Date Data Source CHLAMYDIA & GC DNA AMPLIFICAT 05/11/2021 12:00:00 AM EDT eCW 1 ([facility]) Name Value Range Interpretation Code Description Data Roxana rce(s) Supporting Document(s) Chlamydia trachomatis rRNA [Presence] in Unspecified specimen by Probe and target amplification method NEGATIVE NEGATIVE CHLAMYDIA DNA AMPLIFICATION eCW1 ([facility]) ID Date Data Source CBC - Complete Blood Count 05/11/2021 12:00:00 AM EDT eCW1 ( [facility]) Name Value Range Interpretation Code Description Data Roxana rce(s) Supporting Document(s) 4.12 4.00-5.40 RED BLOOD COUNT eCW1 ([facility]) 8.7 4.0-10.0 WHITE BLOOD COUNT eCW1 ([facility]) 9.0 12.0-15.5 HEMOGLOBIN eCW1 ([facility]) 74.5 80.0-96.0 MEAN CORPUSCULAR VOLUME e CW1 ([facility]) 21.8 27.0-33.0 MEAN CORPUSCULAR HEMOGLOB IN eCW1 ([facility]) 30.7 36.0-47.0 HEMATOCRIT eCW1 ([facility]) 15.9 11.5-14.5 RED CELL DISTRIBUTION WID TH eCW1 ([facility]) 29.3 32.0-36.5 MEAN CORPUSCULAR HGB CONC eCW1 ([facility]) 282 150-450 PLATELET COUNT, AUTOMATED eCW1 ([facility]) ID Date Data Source [id number] 03/31/2021 12:15:00 PM EDT [facility] Name Value Range Interpretation Code Description Data Roxana rce(s) Supporting Document(s) SARS-CoV-2 RNA Resp Ql PENELOPE+probe DETECTED [facility] This lab was ordered by [place] river and reported by [place] Grover. ID Date Data Source [id number] 03/24/2021 12:00:00 AM EDT [facility] Name Value Range Interpretation Code Description Data Roxana rce(s) Supporting Document(s) SARS-CoV2 Rapid Antigen Positive [facility] This lab was ordered by [facility] [place] [facility] and reported by [facility]. ID Date Data Source [id number] 12/20/2020 11:58:01 AM EDT NextGen ([facility]) Name Value Range Interpretation Code Description Data Roxana rce(s) Supporting Document(s) Positive Abnormal (applies to non-num fredi results) High Sensitivity Urine Test NextGen ([facility]) ID Date Data Source [id number] 05/17/2020 09:34:27 AM EDT [facility]FORMATIONPatient MRN Name Date of Age Gend*PT [id number] Salima Wolfe 2000 19 years F IPPT Location Admission Date/Time Visit ID Attending [id number] 03/25/19 0733 --- --- EPI ID CSN Admitting Provider [id number] Deedee Rodgers MD([id number])Discharge SummarySalima Wolfe date: 03/25/2019 7:33 AM Primary Care Provider: Ruth PETERSitting Physician: Juwan Don Diagnosis: Post-Op Diagnosis Codes: * Morbid obesity [E66.01]Secondary Diagnoses:Past Medical History:Diagnosis Date Advanced Airway Equipment Used Diabetes mellitus borderline type 2 Morbid obesity BMI 56.4Surgical Procedures performed on 03/25/2019 by Deedee Rodgers MD Procedure(s): GASTRIC BYPASS,[place]-EN Y,XI ROBOT-ASSISTED,LAPAROSCOPIC ASSISTED,LIVER BIOPSY Post-Op Diagnosis Codes: * Morbid obesity [E66.01]Secondary Procedures:None.Indication for Admission:Salima Wolfe is a 18 years female who suffers from morbid obesity.Her current weight and height are :Wt Readings from Last 1 Encounters:03/25/19 (!) 136.2 kg (300 lb 4.3 oz)Ht Readings from Last 1 Encounters:03/25/19 1.575 m (5' 2")Giving her a Body mass index is 54.92 kg/m .; therefore, Salima Wolfe metthe criteria for weight loss surgery as defined in the NIH consensus statement,and surgery was medically necessary.Hospital Course: The patient underwent above listed procedure on 03/25/2019 byDr. Deedee Rodgers. There were no intraoperative complications andpostoperatively She was transferred to the floor in stable condition. Therewere no postoperative issues. Up on the floor She was given sips of water anddilute juice to drink. She also ambulated and used the incentive spirometerappropriately. She had no difficulties voiding. She had adequate pain controlas well with simethicone and tylenol. At the time of discharge, Accuchecks andblood pressure were normal. She was tolerating 4 oz of fluid consistentlywithout nausea. Patient was deemed appropriate for discharge home per MD.Patient was given post-op instructions and expressed understanding. They weregiven warning signs and symptoms to call the office with.She received extensive education on medications to take at home as well as dieteducation. She showed very good understanding and agreement with the dischargeplan.Most recent glucose:Glucose, POCDate Value Ref Range Jdnuxs7803/26/2019 117 (H) 70 - 99 mg/dL Final Comment: PERFORMED BY [facility] CLINICAL STAFFDischarge instructions were reviewed in person and provided to the patient inprinted form as well. Salima Wolfe knows to call is there are any problemsDischarge Exam:Vitals: Temp: [98 F-98.4 F] 98.3 FHeart Rate: [58-100] 58Resp: [13-24] 16BP: (109-141)/(55-84) 129/84General: Laying in bed comfortably, in NADHeart: RRRLungs: Non-laboredAbd: Soft, non- distended, appropriately tender, incisions C/D/IExt: Calves non-tender to palpationDischarged Condition:goodDisposition: Home or Self CareFollow-up:Deedee Rodgers MD as scheduled in the office.Medications: Salima Wolfe Medication Instructions VERONICA:[id number] Printed on:03/26/19 1123Medication Informationacetaminophen (TYLENOL) 325 MG tabletTake 2 tablets (650 mg total) by mouth every 6 (six) hours as needed for paincyanocobalamin ([facility] VITAMIN B-12) 500 MCG tabletTake 2 tablets (1,000 mcg total) by mouth dailyenoxaparin (LOVENOX) 40 MG/0.4ML SOLNInject 0.4 mL (40 mg total) under the skin daily for 10 daysMultiple Vitamins-Minerals (MULTIVITAMIN WITH MINERALS) tabletTake 2 tablets by mouth dailyomeprazole (PRILOSEC) 40 MG capsuleTake 1 capsule (40 mg total) by mouth dailyondansetron (ZOFRAN-ODT) 4 MG disintegrating tabletTake 1 tablet (4 mg total) by mouth every 6 (six) hours as needed for nauseasimethicone (MYLICON) 80 MG chewable tabletChew 1 tablet (80 mg total) every 6 (six) hours as needed for flatulence Nohemy Gallardo, [place]03/26/1911:23 AM Name Value Range Interpretation Code Description Data Roxana rce(s) Supporting Document(s) Procedure Social History Code Duration Value Status Description Data Source(s ) Smoking 05/14/2021 12:00:00 AM EDT Never Smoker completed Never S moker eCW1 ([facility]) Smoking 05/10/2021 12:00:00 AM EDT Never Smoker completed Never S moker eCW1 ([facility]) Smoking 05/10/2021 12:00:00 AM EDT Never Smoker completed Never S moker eCW1 ([facility]) Smoking 04/30/2021 12:00:00 AM EDT Never Smoker completed Never S moker eCW1 ([facility]) Smoking 04/30/2021 12:00:00 AM EDT Never Smoker completed Never S moker eCW1 ([facility]) Smoking 04/23/2021 12:00:00 AM EDT Never Smoker completed Never S moker eCW1 ([facility]) Smoking 04/23/2021 12:00:00 AM EDT Never Smoker completed Never S moker eCW1 ([facility]) Smoking 03/20/2021 12:00:00 AM EDT Never Smoker completed Never S moker eCW1 ([facility]) Smoking 03/20/2021 12:00:00 AM EDT Never Smoker completed Never S moker eCW1 ([facility]) Smoking 02/22/2021 12:00:00 AM EDT Never Smoker completed Never S moker eCW1 ([facility]) Smoking 01/18/2021 12:00:00 AM EDT Never Smoker completed Never S moker eCW1 ([facility]) Smoking 01/11/2021 12:00:00 AM EDT Never Smoker completed Never S moker eCW1 ([facility]) Smoking 12/25/2020 12:00:00 AM EDT Never Smoker completed Never S moker eCW1 ([facility]) Smoking 12/20/2020 12:00:00 AM EDT Never smoker completed Never s moker [facility] ([facility]) Smoking 06/20/2020 12:00:00 AM EST Never Smoker completed Never S moker eCW1 ([facility]) Vital Signs ID Date Data Source UNK Name Value Range Interpretation Code Description Data Source(s) Body weight 202 [lb_av] 202 [lb_av] eCW1 ([facility]) Body weight 91.63 kg 91.63 kg eCW1 ([facility]) Body height 62 [in_i] 62 [in_i] eCW1 ([facility]) Body mass index (BMI) [Ratio] 36.946 kg/m2 36.9 46 kg/m2 eCW1 ([facility]) Systolic blood pressure 118 mm[Hg] 118 mm[Hg] e CW1 ([facility]) Diastolic blood pressure 78 mm[Hg] 78 mm[Hg] eCW1 ([facility]) Body weight 209 [lb_av] 209 [lb_av] eCW1 ([facility]) Body weight 94.8 kg 94.8 kg eCW1 ([facility]) Body height 62 [in_i] 62 [in_i] eCW1 ([facility]) Body mass index (BMI) [Ratio] 38.22 kg/m2 38.22 kg/m2 eCW1 ([facility]) Systolic blood pressure 120 mm[Hg] 120 mm[Hg] e CW1 ([facility]) Diastolic blood pressure 76 mm[Hg] 76 mm[Hg] eCW1 ([facility]) Body weight 200 [lb_av] 200 [lb_av] eCW1 ([facility]) Body height 62 [in_i] 62 [in_i] eCW1 ([facility]) Body mass index (BMI) [Ratio] 36.58 kg/m2 36.58 kg/m2 eCW1 ([facility]) Systolic blood pressure 126 mm[Hg] 126 mm[Hg] e CW1 ([facility]) Diastolic blood pressure 70 mm[Hg] 70 mm[Hg] eCW1 ([facility]) Body weight 200.8 [lb_av] 200.8 [lb_av] eCW1 ([facility]) Body weight 91.08 kg 91.08 kg eCW1 ([facility]) Body height 62 [in_i] 62 [in_i] eCW1 ([facility]) Body mass index (BMI) [Ratio] 36.727 kg/m2 36.7 27 kg/m2 eCW1 ([facility]) Systolic blood pressure 122 mm[Hg] 122 mm[Hg] e CW1 ([facility]) Diastolic blood pressure 70 mm[Hg] 70 mm[Hg] eCW1 ([facility]) Body weight 203.0 [lb_av] 203.0 [lb_av] eCW1 ([facility]) Body weight 92.08 kg 92.08 kg eCW1 ([facility]) Body height 62 [in_i] 62 [in_i] eCW1 ([facility]) Body mass index (BMI) [Ratio] 37.129 kg/m2 37.1 29 kg/m2 eCW1 ([facility]) Systolic blood pressure 120 mm[Hg] 120 mm[Hg] e CW1 ([facility]) Diastolic blood pressure 72 mm[Hg] 72 mm[Hg] eCW1 ([facility]) Body weight 202 [lb_av] 202 [lb_av] eCW1 ([facility]) Body height 62 [in_i] 62 [in_i] eCW1 ([facility]ly [facility], later [facility]) Body mass index (BMI) [Ratio] 36.94 kg/m2 36.94 kg/m2 eCW1 ([facility]) Systolic blood pressure 118 mm[Hg] 118 mm[Hg] e CW1 ([facility]) Diastolic blood pressure 72 mm[Hg] 72 mm[Hg] eCW1 ([facility]) Body weight 203.0 [lb_av] 203.0 [lb_av] eCW1 ([facility]) Body weight 92.08 kg 92.08 kg eCW1 (Formerly [facility], later [facility]) Body height 62 [in_i] 62 [in_i] eCW1 ([facility], [facility]) Body mass index (BMI) [Ratio] 37.129 kg/m2 37.1 29 kg/m2 eCW1 ([facility]) Systolic blood pressure 122 mm[Hg] 122 mm[Hg] e CW1 ([facility]) Diastolic blood pressure 82 mm[Hg] 82 mm[Hg] eCW1 ([facility]) Body weight 203 [lb_av] 203 [lb_av] eCW1 ([facility]) Body height 62 [in_i] 62 [in_i] eCW1 ([facility], [facility]) Body mass index (BMI) [Ratio] 37.13 kg/m2 37.13 kg/m2 eCW1 ([facility]) Heart rate 71 /min 71 /min eCW1 ([facility]) Respiratory rate 16 /min 16 /min eCW1 ([facility]) Body temperature 96.9 [degF] 96.9 [degF] eCW1 ( [facility]) Systolic blood pressure 116 mm[Hg] 116 mm[Hg] e CW1 ([facility]) Diastolic blood pressure 74 mm[Hg] 74 mm[Hg] eCW1 ([facility]) Body weight 201.6 [lb_av] 201.6 [lb_av] eCW1 ([facility]) Body weight 91.44 kg 91.44 kg eCW1 ([facility], [facility]) Body height 62 [in_i] 62 [in_i] eCW1 ([facility]) Body mass index (BMI) [Ratio] 36.873 kg/m2 36.8 73 kg/m2 eCW1 ([facility]) Systolic blood pressure 110 mm[Hg] 110 mm[Hg] e CW1 ([facility]) Diastolic blood pressure 70 mm[Hg] 70 mm[Hg] eCW1 ([facility]) Body height 157.48 cm 157.48 cm [employer] ([facility]) Body weight 89.902 kg 89.902 kg [employer] ([facility]) Systolic blood pressure 112 mm[Hg] 112 mm[Hg] N extGen ([facility]) Diastolic blood pressure 66 mm[Hg] 66 mm[Hg] NextGen ([facility]) Body temperature 36.39 Radhika 36.39 Radhika Next[employer] ([facility]) Body mass index (BMI) [Ratio] 36.25 kg/m2 Overweight 36.25 kg/m2 Next[employer] ([facility]) Body weight 209 [lb_av] 209 [lb_av] eCW1 ([facility]) Body height 62 [in_i] 62 [in_i] eCW1 ([facility]) Body mass index (BMI) [Ratio] 38.22 kg/m2 38.22 kg/m2 W1 ([facility]) Heart rate 69 /min 69 /min W1 ([facility]) Respiratory rate 16 /min 16 /min W1 ([facility]) Body temperature 97.8 [degF] 97.8 [degF] eCW1 ( [facility]) Systolic blood pressure 128 mm[Hg] 128 mm[Hg] e CW1 ([facility]) Diastolic blood pressure 77 mm[Hg] 77 mm[Hg] eCW1 ([facility])
[2021-05-28] MEDS ORDERED: OXYTOCIN 30 UNITS IN 0.9% NaCl 500ML IV BAG (J2590) As Ordered ONE (11:33)
[2021-05-28 11:35] LABS: HEMATOCRIT 31.1 % (36.0-47.0); HEMOGLOBIN 9.5 g/dl (12.0-15.5); MEAN CORPUSCULAR HEMOGLOBIN 22.7 pg (27.0-33.0); MEAN CORPUSCULAR HGB CONC 30.5 g/dl (32.0-36.5); MEAN CORPUSCULAR VOLUME 74.2 fl (80.0-96.0); PLATELET COUNT, AUTOMATED 251 10^3/uL (150-450); RED BLOOD COUNT 4.19 10^6/uL (4.00-5.40); WHITE BLOOD COUNT 14.5 10^3/uL (4.0-10.0)
[2021-05-28] MEDS ORDERED: FENTANYL 2MCG/ML ROPIVACAINE 0.2% IN 0.9% NACL 100ML IVBAG As Ordered ONE (12:00)
[2021-05-28] MEDS ORDERED: ONDANSETRON 4MG/2ML VIAL IV PRN (13:00)
[2021-05-28] MEDS ORDERED: ePHEDrine SULFATE 25 MG/5 ML(5MG/ML) SYRINGE IV PRN (13:00)
[2021-05-28] MEDS ORDERED: EPIDURAL COMMENT XX SCH (13:00)
[2021-05-28] MEDS ORDERED: NALOXONE INJ 0.4MG/1ML VIAL (J2310 PER 1MG) IV PRN (13:00)
[2021-05-28] MEDS ORDERED: REFRIGERATOR IV KEYS XX PRN (13:00)
[2021-05-28] MEDS ORDERED: LACTATED RINGER'S 1000 ML IV PRN (13:00)
[2021-05-28] MEDS ORDERED: diphenhydrAMINE 50MG/ML VIAL (J1200) IV PRN (13:00)
[2021-05-28] MEDS ORDERED: EPIDURAL/PCA KEYS XX PRN (13:00)
[2021-05-28] MEDS ORDERED: FENTANYL/ROPIVACAINE/NACL BAG 100 ML EPIDURAL SCH (13:00)
--- NOTE | 2021-05-28 14:17 | IPNPDOC ---
Obstetrical Progress Note Date of Service May 28, 2021 Subjective comfortable with epidural, though feeling pressure with contractions Objective Vital Signs Date Time Temp Pulse Resp B/P (MAP) Pulse Ox O2 Delivery O2 Flow Rate FiO2 05/28/21 12:52 97.8 62 18 117/60 (79) Assessment Heart Rate (FHR): 140 Variability: Moderate Accelerations: Positive Decelerations: None Heart Rate Tracing: Category I Tocometer Contractions: Yes Frequency: every 2-5 min. Strength: palpated as strong Sterile Vaginal Examination Dilation: 8 cm Effacement (%): 90% Station: 0 Cervical Consistency: Soft Cervical Position: Anterior Postion/Presentation: Cephalic presentation Assessment and Plan Age: 20 : 3 Term: 2 Pre-term: 0 Abortions: 0 Livin EGA at Admission: 38.5 Status: Reassuring Anticipate: Vaginal Delivery Additional Comments AROM with consent, scant amount of clear fluid. ARABELLA NÚÑEZ CNM May 28, 2021 14:17
[2021-05-28] MEDS ORDERED: OXYTOCIN DRIP 30 UNITS in IV 1 EA IV SCH (14:35)
--- NOTE | 2021-05-28 15:13 | DNPDOC ---
[facility] [place] Delivery Note Delivery Note DATE OF DELIVERY: 05/28/2021 PREDELIVERY DIAGNOSIS: 38 5/7 weeks' gestation and labor. POST DELIVERY DIAGNOSIS: Delivered. PROCEDURE: Spontaneous vaginal delivery. SHIP PURSER: Arabella Segundo CNM and NORMA De Santiago ANESTHESIA: epidural. ESTIMATED BLOOD LOSS: 150 mL. FINDINGS: 6 pound 2 ounce, 2780 gram, male , Score 9/9, nuchal cord times x 1 loose. DELIVERY SUMMARY: Patient is a 20-year-old 3 now para 3003 who was admitted to labor and delivery in active labor. She received an epidural for pain management. She was fully at 1441 and pushed to a living male at 1445 in the LAZARA position with restitution to LOT, very loose nuchal cord x 1. Anterior shoulder was delivered with gentle downward traction and the corpus followed and delivered through the cord. Three vessel cord was clamped and the cord was cut by the father of the baby. The placenta was delivered at 1452 via Miranda with intact membranes. Hemostasis was achieved with IV pitocin and fundal massage. The cervix, vagina, and perineum was inspected and found to exhibit a left labial abrasion, repaired with 4.0 vicryl for hemostasis. Mom and dad have named the baby Jose. Counts of instruments and sponges are correct. Mom and baby are in stable condition. ARABELLA SEGUNDO CNM May 28, 2021 15:13
[2021-05-28] MEDS ORDERED: MOM 30ML SUSPENSION UDC PO PRN (18:50)
[2021-05-28] MEDS ORDERED: MEASLES,MUMPS,RUBELLA VACCINE INJ (MMR-II) (90707) SC SCH (18:50)
[2021-05-28] MEDS ORDERED: ANUSOL HC CREAM 30GM TOP PRN (18:50)
[2021-05-28] MEDS ORDERED: IBUPROFEN 800 MG TAB PO PRN (18:50)
[2021-05-28] MEDS ORDERED: DIBUCAINE 1% OINTMENT 30GM TOP PRN (18:50)
[2021-05-28] MEDS ORDERED: RHOGAM 300 MCG (1500 IU) INJ (J2790) IM SCH (18:50)
[2021-05-28] MEDS ORDERED: IBUPROFEN 600MG TAB PO PRN (18:50)
[2021-05-28] MEDS ORDERED: ACETAMINOPHEN TAB 650MG DOSE (2X325MG) PO PRN (18:50)
[2021-05-28] MEDS ORDERED: ACETAMINOPHEN 500 MG TAB PO PRN (18:50)
[2021-05-28] MEDS ORDERED: DOCUSATE SODIUM 100MG CAPSULE PO PRN (18:50)
[2021-05-29 05:48] VITALS: BP 99/53
[2021-05-29] MEDS ORDERED: PRENATAL VITAMINS CHEWABLE TABLET PO SCH (09:00)
--- NOTE | 2021-05-29 12:50 | IPNPDOC ---
Progress Note Date of Service: May 29, 2021 Day#: 1 Progress Note SUBJECT: Status post . She has been ambulating, voiding spontaneously with out issue and tolerating regular diet. Lochia decreasing/minimal. Pain is well- controlled. Denies headache, visual changes, right upper quadrant pain, shortness breath or chest pain. OBJECTIVE: VITAL SIGNS: Within normal limits, afebrile. Alert and oriented times three. Abdomen: Fundus firm at U-2. Soft, NTTP. ASSESSMENT: Status post uncomplicated spontaneous vaginal delivery. Vitals within normal limits, afebrile, hemodynamically stable with no evidence of infection. PLAN: Discharge to home today. Tylenol and Motrin for pain. Routine instructions/precautions reviewed. Routine PP visit in 6 weeks in clinic. VS, I&O, 24H, [place] Vital Signs/I&O Vital Signs Date Time Temp Pulse Resp B/P (MAP) Pulse Ox O2 Delivery O2 Flow Rate FiO2 05/29/21 05:48 98.2 61 14 99/53 (68) 98 Room Air I&O- Last 24 Hours up to 6 AM 05/29/21 06:00 Intake Total 1280 ml Output Total 1050 ml Balance 230 ml Laboratory Data 24H LABS Laboratory Tests 2 05/28/21 17:23: Serology Scanned Report Hepatitis B Testing MARIUSZ PAUL DO May 29, 2021 12:50
== END 2021-05-29 16:50 | disposition home or self-care (01) | DRG 560 ==
LOC: M LDO 07:12 → M LDI 10:28 → M OBS 16:42
PROVIDERS: ADMIT Advanced Practice Midwife; ATTEND Advanced Practice Midwife
PROC: 10E0XZZ Delivery of Products of Conception, External Approach (ICD-10-PCS; principal; 2021-05-28)
DX: O99.214 Obesity complicating childbirth (principal); E66.9 Obesity, unspecified; Z3A.38 38 weeks gestation of pregnancy; O99.02 Anemia complicating childbirth; D64.9 Anemia, unspecified; O99.844 Bariatric surgery status complicating childbirth; Z37.0 Single live birth; O69.81X0 Labor and delivery complicated by cord around neck, without compression, not applicable or unspecified; Z86.16 Personal history of COVID-19

== ENCOUNTER → 2022-03-20 | Outpatient (CLI) | payer OTHER ==
[~2022-03-20] MED LIST changes: +AMMONIA AROMATIC INHALANT ONE; -OMEP-221; +OMEP40CA5; +PROHANCE 279.3MG/ML 15ML VIAL ONE; +PROHANCE 279.3MG/ML 5ML VIAL ONE
== END ==
LOC: M PLAIMG 10:58
PROVIDERS: ATTEND Family Medicine
DX: H47.10 Unspecified papilledema (principal); J34.1 Cyst and mucocele of nose and nasal sinus

== ENCOUNTER → 2022-06-19 | Outpatient (CLI) | payer OTHER ==
[~2022-06-19] MED LIST changes: -AMMONIA AROMATIC INHALANT ONE; +LIDOCAINE 1% MDV 20ML VIAL As Ordered ONE; -PROHANCE 279.3MG/ML 15ML VIAL ONE; -PROHANCE 279.3MG/ML 5ML VIAL ONE
[2022-06-19 12:30] VITALS: BP 155/82
[2022-06-19 12:51] LABS: APPEARANCE, CSF CLEAR (CLEAR); COLOR, CSF COLORLESS (COLORLESS); CSF TUBE# CELL CNT TUBE 1
[2022-06-19 13:43] LABS: CSF TUBE# GLU TUBE 1; CSF TUBE# TP TUBE 1; TOTAL PROTEIN,CSF 27.1 MG/DL (15-45)
== END ==
LOC: M IRPRO 09:08
PROVIDERS: ATTEND Psychiatry & Neurology Neurology
DX: G93.2 Benign intracranial hypertension (principal)

== ENCOUNTER → 2022-08-29 | Outpatient (REF) | payer OTHER ==
[~2022-08-29] MED LIST changes: -LIDOCAINE 1% MDV 20ML VIAL As Ordered ONE
== END ==
LOC: M PLALAB 11:08
PROVIDERS: ATTEND Advanced Practice Midwife
DX: Z12.4 Encounter for screening for malignant neoplasm of cervix (principal)

== ENCOUNTER 2024-11-25 14:09 | Emergency (ER) | payer OTHER ==
[~2024-11-25] VITALS: Ht 157.5 cm; Wt 96.2 kg
[2024-11-25 14:50] LABS: BASO # 0.1 10^3/uL (0.0-0.2); BASO % 0.7 % (0.0-1.0); EOS # 0.2 10^3/uL (0.0-0.5); EOS % 1.5 % (0.0-3.0); HEMOGLOBIN 10.5 g/dl (12.0-15.5); LYMPH # 1.6 10^3/uL (1.5-5.0); LYMPH % 12.1 % (24.0-44.0); MEAN CORPUSCULAR HEMOGLOBIN 20.6 pg (27.0-33.0); MEAN CORPUSCULAR HGB CONC 29.2 g/dl (32.0-36.5); MEAN CORPUSCULAR VOLUME 70.6 fl (80.0-96.0); MONO # 0.7 10^3/uL (0.0-0.8); MONO % 5.5 % (2.0-8.0); NEUTROPHILS # 10.7 10^3/uL (1.5-8.5); NEUTROPHILS % 79.9 % (36.0-66.0); PLATELET COUNT, AUTOMATED 358 10^3/uL (150-450); WHITE BLOOD COUNT 13.4 10^3/uL (4.0-10.0)
[2024-11-25] MEDS: NS (Normal Saline) 0.9% 1,000 ML IV ONE (15:11)
[2024-11-25] MEDS: KETOROLAC 30 MG/ML 1ML VIAL IV ONE (15:11)
[2024-11-25] MEDS: ONDANSETRON 4MG 2ML VIAL IV ONE (15:11)
[2024-11-25 15:18] LABS: ALBUMIN 3.9 G/DL (3.2-5.2); BILIRUBIN,DIRECT 0.2 MG/DL (<0.4); BILIRUBIN,TOTAL 0.4 MG/DL (0.3-1.2); TOTAL PROTEIN 6.9 G/DL (5.7-8.2)
[2024-11-25 16:35] LABS: KETONE, URINE AUTO RFX 2+ mg/dL (NEGATIVE); LEUKOCYTE ESTERASE UR AUTO RFX NEGATIVE (NEGATIVE); MUCUS, URINE RFX MODERATE (NEGATIVE); NITRITE, URINE AUTO RFX NEGATIVE (NEGATIVE); RBC, URINE AUTO RFX 1 /HPF (0-3); SQUAM EPITHELIAL CELL UR AURFX 3 /HPF (0-6); WBC, URINE AUTO RFX 0 /HPF (0-3)
[2024-11-25] MEDS: MORPHINE 4 MG/ML 1ML VIAL IV ONE (16:47)
[2024-11-25] MEDS: POTASSIUM CHLORIDE 10MEQ SR TABLET PO ONE (18:01)
[2024-11-25] MEDS: METOCLOPRAMIDE INJ 10MG/2ML VIAL IV ONE (18:01)
[2024-11-25 19:01] VITALS: BP 112/58; TEMP 97.7; O2SAT 98
[2024-11-25] MEDS: PERCOCET 5MG/325MG TAB PO ONE (19:04)
[2024-11-25] MEDS ORDERED: OXYC1TAB23 PO (19:44)
[2024-11-25] MEDS ORDERED: TAMS-18 PO (19:44)
[2024-11-25] MEDS ORDERED: ONDA-282 PO (19:44)
== END 2024-11-25 19:53 | disposition home or self-care (01) ==
LOC: EDBD 14:09 → EDSEX 14:09 → M ED 14:09
DX: N13.30 Unspecified hydronephrosis (principal); N20.1 Calculus of ureter; F41.9 Anxiety disorder, unspecified; F32.A Depression, unspecified; Z98.84 Bariatric surgery status; F19.11 Other psychoactive substance abuse, in remission; Z88.1 Allergy status to other antibiotic agents
CPT/HCPCS: 74176; 80047; 80076; 81001; 83690; 84702; 85025; 93005; 96374; 96375; 99284; J1885; J2405; J2765